=== PATIENT | female | born 1980 | race Caucasian/White ===

== ENCOUNTER 2018-07-26 19:02 | Emergency (ER) | payer OTHER ==
--- NOTE | 2018-07-26 19:08 | PDOC ---
Rapid Medical Evaluation Chief Complaint: Pain Time Seen by Provider: 07/26/18 19:05 Medical Evaluation: 07/26/18 19:06 I have performed a brief in person evaluation of this patient. The patient presents with a CC of: "I feel a lump on the left side of my neck." interpreted by NICHOLAS Larry HPI: Pt is a 37 YO female who states that earlier today she felt a lump/mass on the left side of her neck. PE: Skin: Clear HEENT: No lymphadenopathy. Heart: RRR Lungs: Clear MS: Moves all extremities without difficulty. Pt has pain on the left sternocleidomastoid. Full ROM of neck. Neuro: Appropriate affect Psych: appropriate affect I have ordered: nothing ordered at this time. The patient will proceed to the ED for further evaluation. Discharge Disposition - Diagnosis Musculoskeletal pain - Referrals - Patient Instructions - Post Discharge Activity
[2018-07-26 19:10] VITALS: BP 133/46; PULSE 122; TEMP 99.6; BMI 29.0
--- NOTE | 2018-07-26 20:50 | PDOC ---
History of Present Illness - General Chief Complaint: Pain Stated Complaint: FEVER/PAIN Time Seen by Provider: 07/26/18 19:05 - History of Present Illness Initial Comments: 37-year-old female without comorbidities presents for evaluation of left-sided neck pain times one day without any precipitating traumatic event. 07/26/18 20:45 Past History - Past Medical History Allergies/Adverse Reactions: Allergies Allergy/AdvReac Type Severity Reaction Status Date / Time No Known Allergies Allergy Verified 07/26/18 19:06 Home Medications: Ambulatory Orders Cyclobenzaprine HCl [Flexeril 10 mg] 10 mg PO HS PRN #10 tablet 07/26/18 COPD: No DVT: No Dementia: No - Immunization History Immunization Up to Date: Yes - Suicide/Smoking/Psychosocial Hx Smoking History: Never smoked Hx Alcohol Use: No Drug/Substance Use Hx: No Substance Use Type: None Review of Systems - Review of Systems Musculoskeletal: Yes: Neck Pain All Other Systems: Reviewed and Negative *Physical Exam - Vital Signs Last Vital Signs Temp Pulse Resp BP Pulse Ox 99.6 F 122 H 16 133/46 100 07/26/18 19:06 07/26/18 19:06 07/26/18 19:06 07/26/18 19:06 07/26/18 19:06 - Physical Exam Comments: HEAD: NC/AT EYES: Conjuntiva clear Ears: Canals and TM's normal NOSE: No d/c THROAT: Moist mucous membrances, oral pharanx clear, uvula midline NECK: Supple without adenopathy CARDIAC: S1 S2 LUNGS: CTA Full and Equal breath sounds ABDOMEN: Soft NT ND MS: Full ROM in all joints without edema NEUROLOGIC: No gross sensory or motor deficits, NVID SKIN: Normal color and temperature no lesions or rashes Cervical spine skin color and temperature are normal. Range of motion is full. There is tenderness at the left sternocleidomastoid muscle. With mild palpable spasm. No gross sensorimotor deficits in bilateral upper extremity. She is neurovascularly intact. 07/26/18 20:46 *DC/Admit/Observation/Transfer Diagnosis at time of Disposition: Musculoskeletal pain, Cervical strain - Discharge Dispostion Disposition: HOME Condition at time of disposition: Stable Decision to Admit order: No - Prescriptions Prescriptions: Cyclobenzaprine HCl [Flexeril 10 mg] 10 mg PO HS PRN #10 tablet PRN Reason: Muscle Spasms - Referrals Referrals: Aurelio Barnes MD [Primary Care Provider] - Valente Thacker MD [Staff Physician] - - Patient Instructions Printed Discharge Instructions: DI for Neck Pain Additional Instructions: Return to the emergency room should symptoms worsen or go unresolved. Please follow-up with spine doctor in one to 2 days for further evaluation and treatment options. The muscle relaxer I prescribed he will make you sleepy. One tablet before bedtime. - Post Discharge Activity
== END 2018-07-26 21:00 | disposition home or self-care (01) ==
LOC: JERFT 19:02
DX: M79.1 Myalgia (principal); S16.1XXA Strain of muscle, fascia and tendon at neck level, initial encounter; X58.XXXA Exposure to other specified factors, initial encounter; Y93.89 Activity, other specified; Y92.89 Other specified places as the place of occurrence of the external cause; Y99.8 Other external cause status
CPT/HCPCS: 99281-25

== ENCOUNTER 2018-07-28 20:53 | Observation (INO) | payer OTHER ==
--- NOTE | 2018-07-28 21:09 | PDOC ---
Rapid Medical Evaluation Time Seen by Provider: 07/28/18 21:03 Medical Evaluation: Allergies Allergy/AdvReac Type Severity Reaction Status Date / Time No Known Allergies Allergy Verified 07/26/18 19:06 07/28/18 21:06 I have performed a brief in-person evaluation of this patient. The patient presents with a chief complaint of: return to ed for fever, bodyaches and dizziness. Patient seen Wednesday given cyclobenzaprine. States not feeling better Pertinent physical exam findings are NAD clear lungs bilaterally hr 120 I have ordered the following: ekg, iv site, labs, blood culture, antipyretic The patient will proceed to Ed for further evaluation Discharge Disposition - Referrals Referrals: Aurelio Barnes MD [Primary Care Provider] - - Patient Instructions - Post Discharge Activity
[2018-07-28] MEDS ORDERED: ACETAMINOPHEN 325 MG TABLET (FP) PO ONE (21:10)
[2018-07-28] MEDS ORDERED: SODIUM CHLORIDE 0.9% 500 ML INFUS.BAG IV ONE (21:11)
--- NOTE | 2018-07-28 21:20 | PDOC ---
History of Present Illness - History of Present Illness Initial Comments: 07/28/18 21:20 Ms. Cordero is a 37 yo female w/ no pmh who presents for evaluation of 3 day history of right sided flank pain and fever. Patient was evaluated 2 days ago in this ER; per note she was complaining of neck pain at that time w/ associated TTP. Patient was discharged w/ flexeril. Patient reports fever started after she left ER on Wednesday. Also reports increased Urinary frequency over this time. Patient reports she has taken motrin for fever with some relief from symptoms. LMP started today. The patient denies chest pain, shortness of breath, headache and dizziness. Denies chills, nausea, vomit, diarrhea and constipation. Denies dysuria, urgency and hematuria. <Terrence Jennings - Last Filed: 07/29/18 00:00> <Chetan Diaz - Last Filed: 07/29/18 01:30> - General Chief Complaint: Cold Symptoms Stated Complaint: COLD SYMPTOMS Time Seen by Provider: 07/28/18 21:03 Past History - Past Medical History COPD: No DVT: No Dementia: No - Immunization History Immunization Up to Date: Yes - Suicide/Smoking/Psychosocial Hx Smoking History: Never smoked Have you smoked in the past 12 months: No Information on smoking cessation initiated: No Hx Alcohol Use: No Drug/Substance Use Hx: No Substance Use Type: None <Terrence Jennings - Last Filed: 07/29/18 00:00> <Chetan Diaz - Last Filed: 07/29/18 01:30> - Past Medical History Allergies/Adverse Reactions: Allergies Allergy/AdvReac Type Severity Reaction Status Date / Time No Known Allergies Allergy Verified 07/28/18 21:09 Home Medications: Ambulatory Orders Cyclobenzaprine HCl [Flexeril 10 mg] 10 mg PO HS PRN #10 tablet 07/26/18 Review of Systems - Review of Systems Comments:: 07/28/18 22:15 GENERAL/CONSTITUTIONAL: +Fever as described. No chills. No weakness. HEAD, EYES, EARS, NOSE AND THROAT: No change in vision. No ear pain or discharge. No sore throat. CARDIOVASCULAR: No chest pain or shortness of breath RESPIRATORY: No cough, wheezing, or hemoptysis. GASTROINTESTINAL: +Right flank pain x3 days. No nausea, vomiting, diarrhea or constipation. GENITOURINARY: +Increased urinary frequency over past several days. No dysuria or other change in urination. MUSCULOSKELETAL: No joint or muscle swelling or pain. No neck or back pain. SKIN: No rash NEUROLOGIC: No headache, vertigo, loss of consciousness, or change in strength/ sensation. ENDOCRINE: No increased thirst. No abnormal weight change HEMATOLOGIC/LYMPHATIC: No anemia, easy bleeding, or history of blood clots. ALLERGIC/IMMUNOLOGIC: No hives or skin allergy. <Terrence Jennings - Last Filed: 07/29/18 00:00> *Physical Exam - Vital Signs Last Vital Signs Temp Pulse Resp BP Pulse Ox 102.7 F H 128 H 18 106/73 100 07/28/18 21:05 07/28/18 21:05 07/28/18 21:05 07/28/18 21:05 07/28/18 21:05 - Physical Exam Comments: 07/28/18 22:16 GENERAL: Awake, alert, and fully oriented, in no acute distress HEAD: No signs of trauma, normocephalic, atraumatic EYES: PERRLA, EOMI, sclera anicteric, conjunctiva clear ENT: Auricles normal inspection, hearing grossly normal, nares patent, oropharynx clear without exudates. Moist mucosa NECK: Normal ROM, supple, no lymphadenopathy, JVD, or masses LUNGS: No distress, speaks full sentences, clear to auscultation bilaterally HEART: +Tachycardic rate at presentation. Regular rhythm, normal S1 and S2, no murmurs, rubs or gallops, peripheral pulses normal and equal bilaterally. ABDOMEN: Soft, nontender, normoactive bowel sounds. No guarding, no rebound. No masses EXTREMITIES: Normal inspection, normal range of motion, no edema. No clubbing or cyanosis. NEUROLOGICAL: Cranial nerves II through XII grossly intact. Normal speech, normal gait, no focal sensorimotor deficits SKIN: Warm, Dry, normal turgor, no rashes or lesions noted. <Terrence Jennings - Last Filed: 07/29/18 00:00> - Vital Signs Last Vital Signs Temp Pulse Resp BP Pulse Ox 98.6 F 88 16 115/61 100 07/29/18 00:57 07/29/18 00:57 07/29/18 00:57 07/29/18 00:57 07/29/18 00:57 <EmilyChetan - Last Filed: 07/29/18 01:30> ED Treatment Course - LABORATORY CBC & Chemistry Diagram: 07/28/18 23:00 07/28/18 21:28 <Terrence Jennings - Last Filed: 07/29/18 00:00> - LABORATORY CBC & Chemistry Diagram: 07/28/18 23:00 07/28/18 21:28 - ADDITIONAL ORDERS Additional order review: Laboratory Results 07/29/18 07/28/18 07/28/18 00:10 23:47 22:30 PT with INR INR PTT (Actin FS) VBG pH POC VBG pCO2 POC VBG pO2 Mixed VBG HCO3 Sodium Potassium Chloride Carbon Dioxide Anion Gap BUN Creatinine Creat Clearance w eGFR Random Glucose Lactic Acid Calcium Total Bilirubin AST ALT Alkaline Phosphatase Troponin I Total Protein Albumin TSH Beta HCG, Quant Urine Color Urine Appearance Urine pH Ur Specific [place] Urine Protein Urine Glucose (UA) Urine Ketones Urine Blood Urine Nitrite Urine Bilirubin Urine Urobilinogen Ur Leukocyte Esterase Urine WBC (Auto) Urine RBC (Auto) Ur Epithelial Cells Urine Mucus Urine HCG, Qual Negative Blood Type A POSITIVE A POSITIVE Antibody Screen Negative Crossmatch See Detail 07/28/18 07/28/18 07/28/18 22:30 21:53 21:53 PT with INR INR PTT (Actin FS) VBG pH 7.42 POC VBG pCO2 36.3 L POC VBG pO2 44.1 Mixed VBG HCO3 23.3 Sodium Potassium Chloride Carbon Dioxide Anion Gap BUN Creatinine Creat Clearance w eGFR Random Glucose Lactic Acid 1.5 Calcium Total Bilirubin AST ALT Alkaline Phosphatase Troponin I Total Protein Albumin TSH Beta HCG, Quant Urine Color [place] Urine Appearance Clear Urine pH 7.0 Ur Specific [place] 1.010 Urine Protein Negative Urine Glucose (UA) Negative Urine Ketones Negative Urine Blood 2+ H Urine Nitrite Negative Urine Bilirubin Negative Urine Urobilinogen Negative Ur Leukocyte Esterase Negative Urine WBC (Auto) 6 Urine RBC (Auto) 27 Ur Epithelial Cells Rare Urine Mucus Rare Urine HCG, Qual Blood Type Antibody Screen Crossmatch 07/28/18 07/28/18 07/28/18 21:33 21:28 21:28 PT with INR 13.20 H INR 1.17 H PTT (Actin FS) 26.9 VBG pH POC VBG pCO2 POC VBG pO2 Mixed VBG HCO3 Sodium Potassium Chloride Carbon Dioxide Anion Gap BUN Creatinine Creat Clearance w eGFR Random Glucose Lactic Acid Calcium Total Bilirubin AST ALT Alkaline Phosphatase Troponin I Total Protein Albumin TSH 0.52 Beta HCG, Quant < 1.0 Urine Color Urine Appearance Urine pH Ur Specific [place] Urine Protein Urine Glucose (UA) Urine Ketones Urine Blood Urine Nitrite Urine Bilirubin Urine Urobilinogen Ur Leukocyte Esterase Urine WBC (Auto) Urine RBC (Auto) Ur Epithelial Cells Urine Mucus Urine HCG, Qual Blood Type Antibody Screen Crossmatch 07/28/18 07/28/18 21:28 21:28 PT with INR INR PTT (Actin FS) VBG pH POC VBG pCO2 POC VBG pO2 Mixed VBG HCO3 Sodium 138 Potassium 4.0 Chloride 107 Carbon Dioxide 22 Anion Gap 9 BUN 5 L Creatinine 0.6 Creat Clearance w eGFR > 60 Random Glucose 113 H Lactic Acid Calcium 8.6 Total Bilirubin 0.3 AST 17 ALT 18 Alkaline Phosphatase 80 Troponin I < 0.02 Total Protein 7.0 Albumin 3.4 TSH Beta HCG, Quant Urine Color Urine Appearance Urine pH Ur Specific [place] Urine Protein Urine Glucose (UA) Urine Ketones Urine Blood Urine Nitrite Urine Bilirubin Urine Urobilinogen Ur Leukocyte Esterase Urine WBC (Auto) Urine RBC (Auto) Ur Epithelial Cells Urine Mucus Urine HCG, Qual Blood Type Antibody Screen Crossmatch 07/28/18 07/28/18 23:00 21:33 RBC 5.04 5.06 MCV 51.1 L 50.9 L MCHC 26.4 L 26.3 L RDW 20.5 H 20.9 H MPV 10.1 9.7 Neutrophils % 60.5 64.0 Lymphocytes % 27.3 24.4 Monocytes % 11.2 H 10.3 H Eosinophils % 0.2 0.6 Basophils % 0.8 0.7 - Medications Given in the ED: ED Medications Discontinued Medications Generic Name Dose Route Start Last Admin Trade Name Freq PRN Reason Stop Dose Admin Acetaminophen 975 mg 07/28/18 21:10 07/28/18 22:20 Tylenol - PO 07/28/18 21:11 975 mg ONCE ONE Administration Sodium Chloride 1,000 ml 07/28/18 21:11 07/28/18 22:21 Normal Saline - IV 07/28/18 21:12 1,000 ml ONCE ONE Administration <Chetan Diaz - Last Filed: 07/29/18 01:30> Medical Decision Making - Medical Decision Making 07/28/18 22:20 Ms. Cordero is a 37 yo female w/ pmh as described who presents for fever and R flank pain concerning for pyelo vs. urolithiasis. Patient noted to be tachycardic w/ fever at presentation; sepsis workup started. 07/28/18 22:56 Patient noted to have H/H of 6.8 / 25.7; repeat CBC ordered for confirmation and CT Abd ordered for further evaluation. 07/28/18 23:59 Anemia confirmed w/ repeat CBC. Patient currently pending CT abd/pelvis w/ IV contrast. Type and screen ordered in preparation for possible blood transfusion. Patient signed out to Dr. Diaz for further evaluation. <Terrence Jennings - Last Filed: 07/29/18 00:00> *DC/Admit/Observation/Transfer <Terrence Jennings - Last Filed: 07/29/18 00:00> - Discharge Dispostion Decision to Admit order: Yes <Chetan Diaz - Last Filed: 07/29/18 01:30> Diagnosis at time of Disposition: Right flank pain Anemia Qualifiers: Anemia type: unspecified type Qualified Code(s): D64.9 - Anemia, unspecified - Discharge Dispostion Condition at time of disposition: Stable - Referrals Referrals: Aurelio Barnes MD [Primary Care Provider] - - Patient Instructions - Post Discharge Activity
[2018-07-28 21:51] LABS: BASO % 0.7 % (0-2.0); EOS % 0.6 % (0-4.5); LYMPH % 24.4 % (8-40); MEAN CELL VOLUME 50.9 fl (80-96); MEAN PLT VOLUME 9.7 fl (7.5-11.1); MONO % 10.3 % (3.8-10.2); PLATELET COUNT 74 K/MM3 (134-434); RBC 5.06 M/mm3 (3.60-5.2); RDW 20.9 % (11.6-15.6); WHITE BLOOD COUNT 8.2 K/mm3 (4.0-10.0)
[2018-07-28 22:05] LABS: ALBUMIN 3.4 g/dl (3.4-5.0); ALK PHOS 80 U/L (45-117); ANION GAP 9 MMOL/L (8-16); BILIRUBIN,TOTAL 0.3 mg/dL (0.2-1); BLOOD UREA NITROGEN 5 mg/dL (7-18); CALCIUM 8.6 mg/dL (8.5-10.1); CHLORIDE 107 mmol/L (98-107); CO2 22 mmol/L (21-32); CREATININE 0.6 mg/dL (0.55-1.3); GLUCOSE,RANDOM 113 mg/dL (74-106); SGOT/AST 17 U/L (15-37); SGPT/ALT 18 U/L (13-61); SODIUM 138 mmol/L (136-145)
[2018-07-28 22:06] LABS: VENOUS PC02 36.3 mmHg (38-52); VENOUS PH 7.42 (7.32-7.42); VENOUS PO2 44.1 mmHg (28-48)
[2018-07-28 22:16] LABS: INR 1.17 (0.83-1.09); PROTHROMBIN TIME (PATIENT) 13.2 SEC (9.7-13.0)
[2018-07-28] MEDS ORDERED: ACETAMINOPHEN 325 MG TABLET (FP) ONE (22:17)
[2018-07-28 22:19] LABS: ACTIVATED PTT 26.9 SECONDS (25.2-36.5)
[2018-07-28 22:38] LABS: MCH 13.4 pg (25.7-33.7)
[2018-07-28 22:39] LABS: HEMOGLOBIN 6.8 GM/dL (10.7-15.3)
[2018-07-28 22:40] LABS: HEMATOCRIT 25.7 % (32.4-45.2)
[2018-07-28 22:41] LABS: MCHC 26.3 g/dl (32.0-36.0)
[2018-07-28 22:44] LABS: URINE APPEARANCE CLEAR; URINE BILIRUBIN NEGATIVE (<2.0 mg/dL); URINE COLOR AMBER; URINE GLUCOSE (UA) NEGATIVE (NEGATIVE); URINE KETONE NEGATIVE (NEGATIVE); URINE LEUK ESTERASE NEGATIVE (NEGATIVE); URINE NITRITE NEGATIVE (NEGATIVE); URINE PROTEIN NEGATIVE (NEGATIVE); URINE UROBILINOGEN NEGATIVE mg/dL (0.2-1.0)
[2018-07-28 22:49] LABS: EPI CELLS RARE /HPF (FEW); URINE MUCUS RARE
[2018-07-28 23:06] LABS: WHITE BLOOD COUNT 9.8 K/mm3 (4.0-10.0)
--- NOTE | 2018-07-28 23:15 | PDOC ---
Attending Attestation - HPI HPI: 07/28/18 23:41 The patient is a 37 year old female with no past medical history who presents to the emergency department for evaluation of a 4 day history of constant, worsening right flank pain. Patient endorses subjective fever and urinary frequency. She reports taking motrin with minimal relief. The patient was seen in the emergency department 2 days ago for neck pain, was discharged with flexeril. Denies chills, nausea, vomiting ,chest pain, shortness of breath, and dysuria. - Physicial Exam PE: Vitals: Triage Vital signs reviewed General Appearance: no acute distress, well nourished well developed, Head: Atraumatic, normocephalic Neck: Supple Chest Wall: Nontender Cardiac: Regular rate and rhythm, no murmurs, no rubs, no gallops, Lungs: Clear to auscultation bilateral, good air movement bilaterally, Abdomen: Soft, nondistended, nontender to palpation Back: (+)Low back, flank discomfort on right. Extremities: Full range of motion to all extremities, no cyanosis, clubbing, or edema Skin: Warm and dry, no rashes or lesions, no petechiae Psych: normal mood, normal affect - Medical Decision Making The patient is a 37 year old female with no past medical history who presents to the emergency department for evaluation of a 4 day history of constant, worsening right flank pain. Plan: CT scan of abdomen Chest X-ray ECG Labs Oxygen <Elsie España - Last Filed: 07/28/18 23:41> - Resident Resident Name: Chrissie Pedraza - ED Attending Attestation I have performed the following: I have examined & evaluated the patient, The case was reviewed & discussed with the resident, I agree w/resident's findings & plan, Exceptions are as noted - Medical Decision Making Fever chills tachycardia no white count on laboratory analysis. CAT scan with evidence of possible passed stone Urinalysis with evidence of infection Ceftriaxone given vital signs have normalized after IV fluids and Tylenol Most likely this represents a transient UTI in the context of a passed stone at this time no evidence of infected stone based on CT findings however will admit patient to the hospital with urology consult <George Pineda - Last Filed: 07/31/18 02:27> Attestations - Attestations Documentation prepared by Elsie España, acting as diploma medical assistant for George Pineda MD. <Elsie España - Last Filed: 07/28/18 23:41>
[2018-07-28 23:29] LABS: BASO % 0.8 % (0-2.0); EOS % 0.2 % (0-4.5); LYMPH % 27.3 % (8-40); MCHC 26.4 g/dl (32.0-36.0); MEAN CELL VOLUME 51.1 fl (80-96); MEAN PLT VOLUME 10.1 fl (7.5-11.1); MONO % 11.2 % (3.8-10.2); NEUT % 60.5 % (42.8-82.8); PLATELET COUNT 76 K/MM3 (134-434); RBC 5.04 M/mm3 (3.60-5.2); RDW 20.5 % (11.6-15.6)
[2018-07-28 23:32] LABS: MCH 13.5 pg (25.7-33.7)
[2018-07-28 23:33] LABS: HEMOGLOBIN 6.8 GM/dL (10.7-15.3)
[2018-07-28 23:34] LABS: ADD RBC MORPHOLOGY YES; HEMATOCRIT 25.8 % (32.4-45.2)
[2018-07-29] MEDS ORDERED: CEFTRIAXONE 1 GM in DEXTROSE 5%-WATER - 100 ML IVPB ONE (01:02)
[2018-07-29] MEDS ORDERED: CEFTRIAXONE 1 GM/50 ML BAG ONE (01:44)
--- NOTE | 2018-07-29 02:47 | PDOC ---
*Physical Exam - Vital Signs Last Vital Signs Temp Pulse Resp BP Pulse Ox 98.6 F 88 16 115/61 100 07/29/18 00:57 07/29/18 00:57 07/29/18 00:57 07/29/18 00:57 07/29/18 00:57 - Physical Exam Comments: 07/29/18 06:38 General Appearance: Nourished. No Apparent Distress HEENT: No Pharyngeal Erythema, Tonsillar Exudate, Tonsillar Erythema Neck: No Cervical Lymphadenopathy Respiratory/Chest: Lungs Clear, Normal Breath Sounds. No Crackles, Rales, Rhonchi, Wheezing Cardiovascular: Regular Rhythm, Regular Rate. No Murmur, Gallops, Rubs Gastrointestinal/Abdominal: Normal Bowel Sounds, Soft. No Guarding, Rebound, Tenderness Musculoskeletal: No CVA Tenderness Extremity: Normal Capillary Refill Integumentary: Normal Color, Dry, Warm Neurologic: Fully Oriented, Alert, Normal Mood/Affect, Normal Response, ED Treatment Course - LABORATORY CBC & Chemistry Diagram: 07/28/18 23:00 07/28/18 21:28 - ADDITIONAL ORDERS Additional order review: Laboratory Results 07/29/18 07/28/18 07/28/18 00:10 23:47 22:30 PT with INR INR PTT (Actin FS) VBG pH POC VBG pCO2 POC VBG pO2 Mixed VBG HCO3 Sodium Potassium Chloride Carbon Dioxide Anion Gap BUN Creatinine Creat Clearance w eGFR Random Glucose Lactic Acid Calcium Total Bilirubin AST ALT Alkaline Phosphatase Troponin I Total Protein Albumin TSH Beta HCG, Quant Urine Color Urine Appearance Urine pH Ur Specific [place] Urine Protein Urine Glucose (UA) Urine Ketones Urine Blood Urine Nitrite Urine Bilirubin Urine Urobilinogen Ur Leukocyte Esterase Urine WBC (Auto) Urine RBC (Auto) Ur Epithelial Cells Urine Mucus Urine HCG, Qual Negative Blood Type A POSITIVE A POSITIVE Antibody Screen Negative Crossmatch See Detail 07/28/18 07/28/18 07/28/18 22:30 21:53 21:53 PT with INR INR PTT (Actin FS) VBG pH 7.42 POC VBG pCO2 36.3 L POC VBG pO2 44.1 Mixed VBG HCO3 23.3 Sodium Potassium Chloride Carbon Dioxide Anion Gap BUN Creatinine Creat Clearance w eGFR Random Glucose Lactic Acid 1.5 Calcium Total Bilirubin AST ALT Alkaline Phosphatase Troponin I Total Protein Albumin TSH Beta HCG, Quant Urine Color [place] Urine Appearance Clear Urine pH 7.0 Ur Specific [place] 1.010 Urine Protein Negative Urine Glucose (UA) Negative Urine Ketones Negative Urine Blood 2+ H Urine Nitrite Negative Urine Bilirubin Negative Urine Urobilinogen Negative Ur Leukocyte Esterase Negative Urine WBC (Auto) 6 Urine RBC (Auto) 27 Ur Epithelial Cells Rare Urine Mucus Rare Urine HCG, Qual Blood Type Antibody Screen Crossmatch 07/28/18 07/28/18 07/28/18 21:33 21:28 21:28 PT with INR 13.20 H INR 1.17 H PTT (Actin FS) 26.9 VBG pH POC VBG pCO2 POC VBG pO2 Mixed VBG HCO3 Sodium Potassium Chloride Carbon Dioxide Anion Gap BUN Creatinine Creat Clearance w eGFR Random Glucose Lactic Acid Calcium Total Bilirubin AST ALT Alkaline Phosphatase Troponin I Total Protein Albumin TSH 0.52 Beta HCG, Quant < 1.0 Urine Color Urine Appearance Urine pH Ur Specific [place] Urine Protein Urine Glucose (UA) Urine Ketones Urine Blood Urine Nitrite Urine Bilirubin Urine Urobilinogen Ur Leukocyte Esterase Urine WBC (Auto) Urine RBC (Auto) Ur Epithelial Cells Urine Mucus Urine HCG, Qual Blood Type Antibody Screen Crossmatch 07/28/18 07/28/18 21:28 21:28 PT with INR INR PTT (Actin FS) VBG pH POC VBG pCO2 POC VBG pO2 Mixed VBG HCO3 Sodium 138 Potassium 4.0 Chloride 107 Carbon Dioxide 22 Anion Gap 9 BUN 5 L Creatinine 0.6 Creat Clearance w eGFR > 60 Random Glucose 113 H Lactic Acid Calcium 8.6 Total Bilirubin 0.3 AST 17 ALT 18 Alkaline Phosphatase 80 Troponin I < 0.02 Total Protein 7.0 Albumin 3.4 TSH Beta HCG, Quant Urine Color Urine Appearance Urine pH Ur Specific [place] Urine Protein Urine Glucose (UA) Urine Ketones Urine Blood Urine Nitrite Urine Bilirubin Urine Urobilinogen Ur Leukocyte Esterase Urine WBC (Auto) Urine RBC (Auto) Ur Epithelial Cells Urine Mucus Urine HCG, Qual Blood Type Antibody Screen Crossmatch 07/28/18 07/28/18 23:00 21:33 RBC 5.04 5.06 MCV 51.1 L 50.9 L MCHC 26.4 L 26.3 L RDW 20.5 H 20.9 H MPV 10.1 9.7 Neutrophils % 60.5 64.0 Lymphocytes % 27.3 24.4 Monocytes % 11.2 H 10.3 H Eosinophils % 0.2 0.6 Basophils % 0.8 0.7 - Medications Given in the ED: ED Medications Discontinued Medications Generic Name Dose Route Start Last Admin Trade Name Zhanna PRN Reason Stop Dose Admin Acetaminophen 975 mg 07/28/18 21:10 07/28/18 22:20 Tylenol - PO 07/28/18 21:11 975 mg ONCE ONE Administration Ceftriaxone Sodium 1 gm/ 100 mls @ 200 mls/hr 07/29/18 01:02 07/29/18 01:47 Dextrose IVPB 07/29/18 01:31 200 mls/hr ONCE ONE Administration Protocol Sodium Chloride 1,000 ml 07/28/18 21:11 07/28/18 22:21 Normal Saline - IV 07/28/18 21:12 1,000 ml ONCE ONE Administration Progress Note - Progress Note Progress Note: The patient is a 37 year old female who presented for evaluation of flank pain. Patient was febrile on presentation and noted to be anemic to 6.8. Patient is pending CT scan and admission. Medical Decision Making - Medical Decision Making 07/29/18 06:39 CT scan demonstrates hydronephrosis without any notable kidney stones as preliminarily read by our tile professional radiologist. We will treat the patient with ceftriaxone and 1 PRBC. We discussed the case with the admitting team who accepted the patient for admission. *DC/Admit/Observation/Transfer Diagnosis at time of Disposition: Right flank pain Anemia Qualifiers: Anemia type: unspecified type Qualified Code(s): D64.9 - Anemia, unspecified - Discharge Dispostion Condition at time of disposition: Stable - Referrals - Patient Instructions - Post Discharge Activity
--- NOTE | 2018-07-29 03:08 | HP ---
CHIEF COMPLAINT: Right Flank Pain, Fever, Fatigue PCP: Dr. Aurelio Barnes HISTORY OF PRESENT ILLNESS: This is a 37 y/o young woman with a PMHx of Anemia 2 yrs ago (no blood transfusion, no iron meds). Who presents to the ED with right flank pain, fever , and fatigue x several days. Patient reports being seen at [facility] 2 days ago for neck/back pain discharged with muscle relaxant. She reports that she felt worse. Patient reports having subjective fevers, not taking her temperature but feeling hot. 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 Patient reports having heavy vaginal bleeding during her menstrual cycle. Patient denies chills, cough. SOB, BOWLES, CP, N/V/D, constipation, dysuria. LMP- currently Patient denies recent sick contacts or travel. 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 Family History: Allergies No Known Allergies Allergy (Verified 07/28/18 21:09) HOME MEDICATIONS: Home Medications Medication Instructions Recorded Cyclobenzaprine HCl [Flexeril 10 10 mg PO HS PRN #10 tablet 07/26/18 mg] REVIEW OF SYSTEMS CONSTITUTIONAL: fever, malaise Absent: chills, diaphoresis, generalized weakness, loss of appetite, weight change HEENT: Absent: rhinorrhea, nasal congestion, throat pain, throat swelling, difficulty swallowing, mouth swelling, ear pain, eye pain, visual changes CARDIOVASCULAR: Absent: chest pain, syncope, palpitations, irregular heart rate, lightheadedness , peripheral edema RESPIRATORY: Absent: cough, shortness of breath, dyspnea with exertion, orthopnea, wheezing, stridor, hemoptysis GASTROINTESTINAL: Absent: abdominal pain, abdominal distension, nausea, vomiting, diarrhea, constipation, melena, hematochezia GENITOURINARY: flank pain Absent: dysuria, frequency, urgency, hesitancy, hematuria, genital pain MUSCULOSKELETAL: back pain, neck pain Absent: myalgia, arthralgia, joint swelling SKIN: Absent: rash, itching, pallor HEMATOLOGIC/IMMUNOLOGIC: Absent: easy bleeding, easy bruising, lymphadenopathy, frequent infections ENDOCRINE: Absent: unexplained weight gain, unexplained weight loss, heat intolerance, cold intolerance NEUROLOGIC: Absent: headache, focal weakness or paresthesias, dizziness, unsteady gait, seizure, mental status changes, bladder or bowel incontinence PSYCHIATRIC: Absent: anxiety, depression, suicidal or homicidal ideation, hallucinations. PHYSICAL EXAMINATION Vital Signs - 24 hr 07/28/18 07/29/18 21:05 00:57 Temperature 102.7 F H 98.6 F Pulse Rate 128 H Pulse Rate [ 88 Apical] Respiratory 18 16 Rate Blood Pressure 106/73 Blood Pressure 115/61 [Left Arm] O2 Sat by Pulse 100 100 Oximetry (%) GENERAL: Awake, alert, and fully oriented, in no acute distress. HEAD: Normal with no signs of trauma. EYES: Pupils equal, round and reactive to light, extraocular movements intact, sclera anicteric, conjunctiva clear, pale. No lid lag. EARS, NOSE, THROAT: Ears normal, nares patent, oropharynx clear without exudates. Moist mucous membranes. NECK: Normal range of motion, supple without lymphadenopathy, JVD, or masses. LUNGS: Breath sounds equal, clear to auscultation bilaterally. No wheezes, and no crackles. No accessory muscle use. HEART: Regular rate and rhythm, normal S1 and S2 without murmur, rub or gallop. ABDOMEN: Soft, nontender, not distended, normoactive bowel sounds, no guarding, no rebound, no masses. No hepatomegaly or splenomegaly. MUSCULOSKELETAL: Normal range of motion at all joints. No bony deformities or tenderness. No CVA tenderness. UPPER EXTREMITIES: 2+ pulses, warm, well-perfused. No cyanosis. No clubbing. No peripheral edema. LOWER EXTREMITIES: 2+ pulses, warm, well-perfused. No calf tenderness. No peripheral edema. NEUROLOGICAL: Cranial nerves II-XII intact. Normal speech. Gait not observed. PSYCHIATRIC: Cooperative. Good eye contact. Appropriate mood and affect. SKIN: Warm, dry, normal turgor, no rashes or lesions noted, normal capillary refill. Laboratory Results - last 24 hr 07/28/18 07/28/18 07/28/18 21:28 21:28 21:28 WBC RBC Hgb Hct MCV MCH MCHC RDW Plt Count MPV Absolute Neuts (auto) Neutrophils % Lymphocytes % Monocytes % Eosinophils % Basophils % Nucleated RBC % PT with INR INR PTT (Actin FS) VBG pH POC VBG pCO2 POC VBG pO2 Mixed VBG HCO3 Sodium 138 Potassium 4.0 Chloride 107 Carbon Dioxide 22 Anion Gap 9 BUN 5 L Creatinine 0.6 Creat Clearance w eGFR > 60 Random Glucose 113 H Lactic Acid Calcium 8.6 Total Bilirubin 0.3 AST 17 ALT 18 Alkaline Phosphatase 80 Troponin I < 0.02 Total Protein 7.0 Albumin 3.4 TSH 0.52 Beta HCG, Quant Urine Color Urine Appearance Urine pH Ur Specific [place] Urine Protein Urine Glucose (UA) Urine Ketones Urine Blood Urine Nitrite Urine Bilirubin Urine Urobilinogen Ur Leukocyte Esterase Urine WBC (Auto) Urine RBC (Auto) Ur Epithelial Cells Urine Mucus Urine HCG, Qual Blood Type Antibody Screen Crossmatch 07/28/18 07/28/18 07/28/18 21:28 21:33 21:33 WBC 8.2 RBC 5.06 Hgb 6.8 L* Hct 25.7 L MCV 50.9 L MCH 13.4 L MCHC 26.3 L RDW 20.9 H Plt Count 74 L MPV 9.7 Absolute Neuts (auto) 5.2 Neutrophils % 64.0 Lymphocytes % 24.4 Monocytes % 10.3 H Eosinophils % 0.6 Basophils % 0.7 Nucleated RBC % 0 PT with INR 13.20 H INR 1.17 H PTT (Actin FS) 26.9 VBG pH POC VBG pCO2 POC VBG pO2 Mixed VBG HCO3 Sodium Potassium Chloride Carbon Dioxide Anion Gap BUN Creatinine Creat Clearance w eGFR Random Glucose Lactic Acid Calcium Total Bilirubin AST ALT Alkaline Phosphatase Troponin I Total Protein Albumin TSH Beta HCG, Quant < 1.0 Urine Color Urine Appearance Urine pH Ur Specific [place] Urine Protein Urine Glucose (UA) Urine Ketones Urine Blood Urine Nitrite Urine Bilirubin Urine Urobilinogen Ur Leukocyte Esterase Urine WBC (Auto) Urine RBC (Auto) Ur Epithelial Cells Urine Mucus Urine HCG, Qual Blood Type Antibody Screen Crossmatch 07/28/18 07/28/18 07/28/18 21:53 21:53 22:30 WBC RBC Hgb Hct MCV MCH MCHC RDW Plt Count MPV Absolute Neuts (auto) Neutrophils % Lymphocytes % Monocytes % Eosinophils % Basophils % Nucleated RBC % PT with INR INR PTT (Actin FS) VBG pH 7.42 POC VBG pCO2 36.3 L POC VBG pO2 44.1 Mixed VBG HCO3 23.3 Sodium Potassium Chloride Carbon Dioxide Anion Gap BUN Creatinine Creat Clearance w eGFR Random Glucose Lactic Acid 1.5 Calcium Total Bilirubin AST ALT Alkaline Phosphatase Troponin I Total Protein Albumin TSH Beta HCG, Quant Urine Color [place] Urine Appearance Clear Urine pH 7.0 Ur Specific [place] 1.010 Urine Protein Negative Urine Glucose (UA) Negative Urine Ketones Negative Urine Blood 2+ H Urine Nitrite Negative Urine Bilirubin Negative Urine Urobilinogen Negative Ur Leukocyte Esterase Negative Urine WBC (Auto) 6 Urine RBC (Auto) 27 Ur Epithelial Cells Rare Urine Mucus Rare Urine HCG, Qual Blood Type Antibody Screen Crossmatch 07/28/18 07/28/18 07/28/18 22:30 23:00 23:47 WBC 9.8 RBC 5.04 Hgb 6.8 L* Hct 25.8 L MCV 51.1 L MCH 13.5 L MCHC 26.4 L RDW 20.5 H Plt Count 76 L MPV 10.1 Absolute Neuts (auto) 5.9 Neutrophils % 60.5 Lymphocytes % 27.3 Monocytes % 11.2 H Eosinophils % 0.2 Basophils % 0.8 Nucleated RBC % 0 PT with INR INR PTT (Actin FS) VBG pH POC VBG pCO2 POC VBG pO2 Mixed VBG HCO3 Sodium Potassium Chloride Carbon Dioxide Anion Gap BUN Creatinine Creat Clearance w eGFR Random Glucose Lactic Acid Calcium Total Bilirubin AST ALT Alkaline Phosphatase Troponin I Total Protein Albumin TSH Beta HCG, Quant Urine Color Urine Appearance Urine pH Ur Specific [place] Urine Protein Urine Glucose (UA) Urine Ketones Urine Blood Urine Nitrite Urine Bilirubin Urine Urobilinogen Ur Leukocyte Esterase Urine WBC (Auto) Urine RBC (Auto) Ur Epithelial Cells Urine Mucus Urine HCG, Qual Negative Blood Type A POSITIVE Antibody Screen Negative Crossmatch 07/29/18 00:10 WBC RBC Hgb Hct MCV MCH MCHC RDW Plt Count MPV Absolute Neuts (auto) Neutrophils % Lymphocytes % Monocytes % Eosinophils % Basophils % Nucleated RBC % PT with INR INR PTT (Actin FS) VBG pH POC VBG pCO2 POC VBG pO2 Mixed VBG HCO3 Sodium Potassium Chloride Carbon Dioxide Anion Gap BUN Creatinine Creat Clearance w eGFR Random Glucose Lactic Acid Calcium Total Bilirubin AST ALT Alkaline Phosphatase Troponin I Total Protein Albumin TSH Beta HCG, Quant Urine Color Urine Appearance Urine pH Ur Specific [place] Urine Protein Urine Glucose (UA) Urine Ketones Urine Blood Urine Nitrite Urine Bilirubin Urine Urobilinogen Ur Leukocyte Esterase Urine WBC (Auto) Urine RBC (Auto) Ur Epithelial Cells Urine Mucus Urine HCG, Qual Blood Type A POSITIVE Antibody Screen Crossmatch See Detail ASSESSMENT/PLAN: This is a 37 y/o young woman with a PMHx of Anemia (no blood transfusion, no iron meds). Placed in Observation for Symptomatic Anemia, R- Flank Pain r/o Pyelonephritis for further evaluation of their emergent condition. FEN: - PO fluids as tolerated - replete lytes prn - Regular Diet DVT ppx -OOB -SCDs -No AC secondary to Anemia Code Status: Full Code Dispo: Observation Problem List - Problem (1) Anemia Assessment/Plan: - Likely secondary to FREDIS vs Menorrhagia - Hgb 6.8 - PRBC x1 pending - Repeat CBC in am - f/u with Hematology and TRUCK JUMPER in outpatient upon d/c - Ferrous Sulfate - Monitor vitals Code(s): D64.9 - ANEMIA, UNSPECIFIED Qualifiers: Anemia type: unspecified type Qualified Code(s): D64.9 - Anemia, unspecified (2) Right flank pain Assessment/Plan: - r/o Renal Calculi vs Pyelonephritis - T max 102.6 - UA- +2 blood possible 2/2 menses - Urine culture-pending - No leukocytosis, no neutrophilia - Blood cultures-pending - Appreciate Urology consult - Given Ceftriaxone in ED, will continue - Strain all urine - Monitor CBC, BMP - Monitor vitals - Tylenol prn Code(s): R10.9 - UNSPECIFIED ABDOMINAL PAIN Visit type - Emergency Visit Emergency Visit: Yes ED Registration Date: 07/28/18 Care time: The patient presented to the Emergency Department on the above date and was hospitalized for further evaluation of their emergent condition. - New Patient This patient is new to me today: Yes Date on this admission: 07/29/18 - Critical Care Critical Care patient: No Hospitalist Screening - Colonoscopy Questionnaire Colonoscopy Questionnaire: Colonoscopy Questionnaire - Patient: 50 - 75 years old and never had a screening colonoscopy: No History of colon or rectal polyps, or CA: No History of IBD, Crohn's disease or UC: No History of abdominal radiation therapy as a child: No - Relative: 1 with colon or rectal CA, or polyps at age 60 or younger: No Colon or rectal CA diagnosed at age 45 or younger: No Multiple relatives with colon or rectal CA: No - Outcome: Screening Result: Negative Screen
[2018-07-29 07:22] LABS: ANISOCYTOSIS 2+; MACROCYTOSIS 2+; OVALOCYTE 2+; TEAR DROP CELLS FEW
[2018-07-29 07:23] LABS: PLATELET ESTIMATE DECREASED
[2018-07-29] MEDS ORDERED: ACETAMINOPHEN 325 MG TABLET (FP) PO ONE (10:09)
[2018-07-29] MEDS ORDERED: ACETAMINOPHEN 325 MG TABLET (FP) ONE (10:10)
[2018-07-29] MEDS: FERROUS SO4 325 MG TABLET (FP) PO SCH (10:11)
[2018-07-29 11:00] LABS: HEMATOCRIT 26.4 % (32.4-45.2); HEMOGLOBIN 7.3 GM/dL (10.7-15.3); MCHC 27.8 g/dl (32.0-36.0); MEAN CELL VOLUME 54.9 fl (80-96); MEAN PLT VOLUME 11.1 fl (7.5-11.1); PLATELET COUNT 77 K/MM3 (134-434); RBC 4.81 M/mm3 (3.60-5.2); RDW 21.3 % (11.6-15.6); WHITE BLOOD COUNT 9.8 K/mm3 (4.0-10.0)
[2018-07-29 11:04] LABS: MCH 15.2 pg (25.7-33.7)
[2018-07-29 11:08] LABS: ANION GAP 9 MMOL/L (8-16); BLOOD UREA NITROGEN 3 mg/dL (7-18); CALCIUM 8.2 mg/dL (8.5-10.1); CHLORIDE 108 mmol/L (98-107); CO2 23 mmol/L (21-32); CREATININE 0.4 mg/dL (0.55-1.3); GLUCOSE,RANDOM 98 mg/dL (74-106); MAGNESIUM 2.1 mg/dL (1.8-2.4); POTASSIUM 3.6 mmol/L (3.5-5.1); SODIUM 140 mmol/L (136-145)
[2018-07-29 13:51] LABS: ANISOCYTOSIS 1+
[2018-07-29 13:52] LABS: TEAR DROP CELLS 1+
--- NOTE | 2018-07-29 15:30 | PN ---
Progress Note, Physician Chief Complaint: patient complaining of right side flank pain had temp 102 last night got iv rocephin - Current Medication List Current Medications: Active Medications Ferrous Sulfate (Feosol -) 325 mg PO DAILY LUISANA Last Admin: 07/29/18 10:11 Dose: 325 mg - Objective Vital Signs: Vital Signs Temperature 98.8 F 07/29/18 08:01 Pulse Rate 16 L 07/29/18 08:01 Respiratory Rate 16 07/29/18 08:01 Blood Pressure 108/54 07/29/18 08:01 O2 Sat by Pulse Oximetry (%) 100 07/29/18 08:01 Constitutional: Yes: Calm Cardiovascular: Yes: Regular Rate and Rhythm, S1, S2 Respiratory: Yes: CTA Bilaterally Gastrointestinal: Yes: Normal Bowel Sounds, Soft Edema: No Neurological: Yes: Alert, Oriented Labs: CBC, BMP 07/29/18 09:53 07/29/18 09:53 INR, PTT INR 1.17 (0.83-1.09) H 07/28/18 21:33 Problem List - Problems (1) Anemia Assessment/Plan: iron panel pending prbc Code(s): D64.9 - ANEMIA, UNSPECIFIED Qualifiers: Anemia type: unspecified type Qualified Code(s): D64.9 - Anemia, unspecified (2) Right flank pain Assessment/Plan: ct scan noted- hydronephrosis with hydroureter urology eval iv abx Code(s): R10.9 - UNSPECIFIED ABDOMINAL PAIN
--- NOTE | 2018-07-29 18:44 | CON.ID ---
Consult Consult Specialty:: infectious disease Referred by:: irwin Reason for Consultation:: fever - History of Present Illness Chief Complaint: fever right sided flank pain History of Present Illness: seen in ED on 07/26 for neck pain, discharged on flexeril, reports to me anterior neck pain, no sore throat that has resolved developed fever and right flank pain after discharge admitted yesterday with anemia, fever, thrombocytopenia and right hydronephrosis on ct scan ?passed stone denies travel no history of utis, took motrin at home no antiibotics no mosquito or tick bites no one sick at home knows she is anemic- does not take po iron it makes her sick from - has not returned there for 2 years - History Source History Provided By: Patient, Family Member Limitations to Obtaining History: Language Barrier - Past Medical History Heme/Onc: Yes: Anemia - Alcohol/Substance Use Hx Alcohol Use: No - Smoking History Smoking history: Never smoked Have you smoked in the past 12 months: No - Social History Usual Living Arrangement: With Spouse ADL: Independent 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 Place of : Other ([facility]) History of Recent Travel: No Home Medications - Allergies Allergies/Adverse Reactions: Allergies Allergy/AdvReac Type Severity Reaction Status Date / Time No Known Allergies Allergy Verified 07/28/18 21:09 - Home Medications Home Medications: Ambulatory Orders Cyclobenzaprine HCl [Flexeril 10 mg] 10 mg PO HS PRN #10 tablet 07/26/18 Family Disease History - Family Disease History Family History: Denies Review of Systems - Review of Systems Constitutional: reports: Fever Eyes: reports: No Symptoms HENT: reports: No Symptoms Neck: reports: No Symptoms Cardiovascular: reports: No Symptoms. denies: Chest Pain Respiratory: reports: No Symptoms. denies: Cough Gastrointestinal: reports: No Symptoms. denies: Abdominal Pain, Nausea, Vomiting Genitourinary: reports: Flank Pain. denies: Discharge, Dysuria Breasts: reports: No Symptoms Reported Musculoskeletal: reports: No Symptoms Physical Exam Vital Signs: Vital Signs Temperature 99.8 F H 07/29/18 16:57 Pulse Rate 81 07/29/18 16:57 Respiratory Rate 15 07/29/18 16:57 Blood Pressure 119/59 L 07/29/18 16:57 O2 Sat by Pulse Oximetry (%) 100 07/29/18 16:57 Constitutional: Yes: Well Nourished, No Distress, Calm Eyes: Yes: Conjunctiva Clear HENT: Yes: Atraumatic, Normocephalic. No: Pharyngeal Erythema, Thrush Neck: Yes: Supple, Trachea Midline Cardiovascular: Yes: Regular Rate and Rhythm Respiratory: Yes: Regular, CTA Bilaterally Gastrointestinal: Yes: Normal Bowel Sounds, Soft Renal/: Yes: CVA Tenderness - Right. No: Bladder Distention Musculoskeletal: Yes: WNL Extremities: Yes: WNL Edema: No Integumentary: Yes: WNL. No: Rash Neurological: Yes: WNL, Alert, Oriented Labs: CBC, BMP 07/29/18 09:53 07/29/18 09:53 Imaging - Results Chest X-ray: Report Reviewed Cat Scan: Report Reviewed (mild right hydronephrosis, ?passed stone) Problem List - Problems (1) Fever Code(s): R50.9 - FEVER, UNSPECIFIED (2) Right flank pain Code(s): R10.9 - UNSPECIFIED ABDOMINAL PAIN (3) Anemia Code(s): D64.9 - ANEMIA, UNSPECIFIED Qualifiers: Anemia type: unspecified type Qualified Code(s): D64.9 - Anemia, unspecified (4) Thrombocytopenia Code(s): D69.6 - THROMBOCYTOPENIA, UNSPECIFIED (5) Hydronephrosis of right kidney Code(s): N13.30 - UNSPECIFIED HYDRONEPHROSIS Assessment/Plan cultures pending continue ceftriaxone for possible pyelonephritis ?passed stone fever/thromobcytopenia ?uti ?tick illness-unlikely , normal lfts, no signs hemolysis no mental status changes denies tick exposure consider hematology evaluation if persists anemia- by history, microcytic
[2018-07-29] MEDS: ACETAMINOPHEN 325 MG TABLET (FP) PO PRN (18:45)
[2018-07-29 19:03] VITALS: BMI 29.0
[2018-07-30] MEDS: ACETAMINOPHEN 325 MG TABLET (FP) PO PRN (00:15)
[2018-07-30 06:06] LABS: SERUM IRON SATURATION 3 % (15-55); TOTAL IRON BINDING CAPACITY 391 ug/dL (250-450); UIBC 378 ug/dL (131-425)
[2018-07-30 07:57] LABS: BASO % 0.8 % (0-2.0); EOS % 2.9 % (0-4.5); HEMATOCRIT 28.5 % (32.4-45.2); HEMOGLOBIN 8.1 GM/dL (10.7-15.3); LYMPH % 32.3 % (8-40); MCHC 28.3 g/dl (32.0-36.0); MEAN CELL VOLUME 56.7 fl (80-96); MEAN PLT VOLUME 10.4 fl (7.5-11.1); MONO % 10.3 % (3.8-10.2); NEUT % 53.7 % (42.8-82.8); PLATELET COUNT 78 K/MM3 (134-434); RBC 5.03 M/mm3 (3.60-5.2); RDW 30.8 % (11.6-15.6); WHITE BLOOD COUNT 9.2 K/mm3 (4.0-10.0)
[2018-07-30 08:38] LABS: MCH 16.1 pg (25.7-33.7)
[2018-07-30] MEDS ORDERED: cefTRIAXone SODIUM 1 GM VIAL ONE (08:57)
[2018-07-30] MEDS ORDERED: DEXTROSE 5%-WATER - 50 ML IVPB ONE (08:58)
[2018-07-30] MEDS: CEFTRIAXONE 1 GM in DEXTROSE 5%-WATER - 50 ML IVPB SCH (09:19)
[2018-07-30] MEDS: FERROUS SO4 325 MG TABLET (FP) PO SCH (09:20)
[2018-07-30 11:30] LABS: ANISOCYTOSIS 2+; PLATELET ESTIMATE DECREASED; TEAR DROP CELLS 1+
[2018-07-30] MEDS ORDERED: IRON SUCROSE INJECTION 300 MG in SODIUM CHLORIDE 235 ML IVPB ONE (13:00)
--- NOTE | 2018-07-30 13:06 | PN ---
Progress Note, Physician Chief Complaint: Anemia Thrombocytopenia Right hydronephrosis History of Present Illness: NAD walking in the hallway wants to go home UC pending CT abd/pel reviewed Does not see any formal wear rental clerk CT showed fibroids- last saw DIRECTOR OF ASSESSING in 2 years ago- didn't know she has fibroids has hx of menorrhagia - Current Medication List Current Medications: Active Medications Acetaminophen (Tylenol -) 650 mg PO Q4H PRN PRN Reason: PAIN Last Admin: 07/30/18 00:15 Dose: 650 mg Ferrous Sulfate (Feosol -) 325 mg PO DAILY LUISANA Last Admin: 07/30/18 09:20 Dose: 325 mg Ceftriaxone Sodium 1 gm/ (Dextrose) 50 mls @ 100 mls/hr IVPB DAILY LUISANA; Protocol Last Admin: 07/30/18 09:19 Dose: 100 mls/hr Iron Sucrose 300 mg/ Sodium (Chloride) 250 mls @ 250 mls/hr IVPB DAILY ONE Stop: 07/30/18 13:59 - Objective Vital Signs: Vital Signs Temperature 98.4 F 07/30/18 10:00 Pulse Rate 93 H 07/30/18 10:00 Respiratory Rate 18 07/30/18 10:00 Blood Pressure 99/50 L 07/30/18 10:00 O2 Sat by Pulse Oximetry (%) 100 07/30/18 03:00 Constitutional: Yes: Well Nourished, No Distress, Calm Cardiovascular: Yes: Regular Rate and Rhythm Respiratory: Yes: Regular Gastrointestinal: Yes: Normal Bowel Sounds, Soft Musculoskeletal: Yes: WNL Extremities: Yes: WNL Edema: No Peripheral Pulses WNL: Yes Neurological: Yes: Alert, Oriented Psychiatric: Yes: Alert, Oriented Labs: CBC, BMP 07/30/18 07:15 07/29/18 09:53 INR, PTT INR 1.17 (0.83-1.09) H 07/28/18 21:33 Problem List - Problems (1) Anemia Assessment/Plan: -FREDIS -Avoids taking oral iron, causes constipation -Instructed to see hematology outpatient -Venofer 300 mg x 2 days -Monitor H/H Code(s): D64.9 - ANEMIA, UNSPECIFIED Qualifiers: Anemia type: unspecified type Qualified Code(s): D64.9 - Anemia, unspecified (2) Hydronephrosis of right kidney Assessment/Plan: -mild right hydronephrosis without obstruction Code(s): N13.30 - UNSPECIFIED HYDRONEPHROSIS (3) Right flank pain Assessment/Plan: -pain management -acetaminophen 650 mg po Q6H prn for pain 1-3 -tramadol 50 mg Q8H prn for pain scale 4-6 -Oxycodone 5 mg Q6H PRN for pain scale 7-10 Code(s): R10.9 - UNSPECIFIED ABDOMINAL PAIN (4) Thrombocytopenia Assessment/Plan: -f/u with hematology outpatient Code(s): D69.6 - THROMBOCYTOPENIA, UNSPECIFIED (5) Urinary (tract) obstruction Assessment/Plan: -UC pending -On IV ceftriaxone Code(s): N13.9 - OBSTRUCTIVE AND REFLUX UROPATHY, UNSPECIFIED (6) Menorrhagia Assessment/Plan: -instructed to follow up with wheat grower outpatient Code(s): N92.0 - EXCESSIVE AND FREQUENT MENSTRUATION WITH REGULAR CYCLE Assessment/Plan see problem list
[2018-07-30] MEDS ORDERED: traMADol HCL 50 MG TABLET PO PRN (13:25)
[2018-07-30] MEDS: oxyCODONE HCL 5 MG TABLET PO PRN (13:40)
[2018-07-30] MEDS ORDERED: PT OWN MED DRAWER 7, Y5N ONE (14:30)
[2018-07-30] MEDS: DOCUSATE SODIUM 100 MG CAPSULE (FP) PO SCH (21:09)
[2018-07-31] MEDS: ACETAMINOPHEN 325 MG TABLET (FP) PO PRN ×3 (00:09→15:16)
[2018-07-31] MEDS ORDERED: DEXTROSE 5%-WATER - 50 ML IVPB ONE (09:25)
[2018-07-31] MEDS ORDERED: cefTRIAXone SODIUM 1 GM VIAL ONE (09:25)
[2018-07-31] MEDS: oxyCODONE HCL 5 MG TABLET PO PRN (09:28)
[2018-07-31] MEDS: FERROUS SO4 325 MG TABLET (FP) PO SCH (09:31)
[2018-07-31] MEDS: CEFTRIAXONE 1 GM in DEXTROSE 5%-WATER - 50 ML IVPB SCH (09:31)
[2018-07-31] MEDS: IRON SUCROSE INJECTION 300 MG in SODIUM CHLORIDE 235 ML IVPB SCH (10:16)
--- NOTE | 2018-07-31 10:42 | PN ---
Progress Note, Physician Chief Complaint: Anemia Thrombocytopenia Right hydronephrosis History of Present Illness: NAD walking in the hallway wants to go home UC pending CT abd/pel reviewed Does not see any rug cleaner CT showed fibroids- last saw POLYMER ENGINEER in 2 years ago- didn't know she has fibroids has hx of menorrhagia - Current Medication List Current Medications: Active Medications Acetaminophen (Tylenol -) 650 mg PO Q4H PRN PRN Reason: PAIN Last Admin: 07/31/18 09:30 Dose: 650 mg Docusate Sodium (Colace -) 300 mg PO HS LUISANA Last Admin: 07/30/18 21:09 Dose: 300 mg Ferrous Sulfate (Feosol -) 325 mg PO DAILY LUISANA Last Admin: 07/31/18 09:31 Dose: 325 mg Ceftriaxone Sodium 1 gm/ (Dextrose) 50 mls @ 100 mls/hr IVPB DAILY LUISANA; Protocol Last Admin: 07/31/18 09:31 Dose: 100 mls/hr Iron Sucrose 300 mg/ Sodium (Chloride) 250 mls @ 166.667 mls/hr IVPB DAILY LUISANA Stop: 08/01/18 11:29 Last Admin: 07/31/18 10:16 Dose: 166.667 mls/hr Oxycodone HCl (Roxicodone -) 5 mg PO Q6H PRN PRN Reason: PAIN LEVEL 7 - 10 Last Admin: 07/31/18 09:28 Dose: 5 mg Tramadol HCl (Ultram -) 50 mg PO Q8H PRN PRN Reason: PAIN LEVEL 4 - 6 Last Admin: 07/30/18 19:34 Dose: 50 mg - Objective Vital Signs: Vital Signs Temperature 98.0 F 07/31/18 07:47 Pulse Rate 83 07/31/18 07:47 Respiratory Rate 16 07/31/18 07:47 Blood Pressure 137/59 L 07/31/18 07:47 O2 Sat by Pulse Oximetry (%) 98 07/31/18 08:31 Constitutional: Yes: Well Nourished, No Distress, Calm Cardiovascular: Yes: Regular Rate and Rhythm Respiratory: Yes: Regular Gastrointestinal: Yes: Normal Bowel Sounds, Soft Musculoskeletal: Yes: WNL Extremities: Yes: WNL Edema: No Peripheral Pulses WNL: Yes Neurological: Yes: Alert, Oriented Psychiatric: Yes: Alert, Oriented Labs: CBC, BMP 07/30/18 07:15 07/29/18 09:53 INR, PTT INR 1.17 (0.83-1.09) H 07/28/18 21:33 Problem List - Problems (1) Anemia Assessment/Plan: -FREDIS -Avoids taking oral iron, causes constipation -Instructed to see hematology outpatient -Venofer 300 mg x 1 today -Monitor H/H Code(s): D64.9 - ANEMIA, UNSPECIFIED Qualifiers: Anemia type: unspecified type Qualified Code(s): D64.9 - Anemia, unspecified (2) Hydronephrosis of right kidney Assessment/Plan: -mild right hydronephrosis without obstruction Code(s): N13.30 - UNSPECIFIED HYDRONEPHROSIS (3) Right flank pain Assessment/Plan: -pain management -acetaminophen 650 mg po Q6H prn for pain 1-3 -tramadol 50 mg Q8H prn for pain scale 4-6 -Oxycodone 5 mg Q6H PRN for pain scale 7-10 Code(s): R10.9 - UNSPECIFIED ABDOMINAL PAIN (4) Thrombocytopenia Assessment/Plan: -f/u with hematology outpatient Code(s): D69.6 - THROMBOCYTOPENIA, UNSPECIFIED (5) Urinary (tract) obstruction Assessment/Plan: -UC pending -On IV ceftriaxone Code(s): N13.9 - OBSTRUCTIVE AND REFLUX UROPATHY, UNSPECIFIED (6) Menorrhagia Assessment/Plan: -instructed to follow up with ballet company member outpatient Code(s): N92.0 - EXCESSIVE AND FREQUENT MENSTRUATION WITH REGULAR CYCLE Assessment/Plan see problem list D/C on PO abx once ID clears
--- NOTE | 2018-07-31 11:59 | PN ---
Progress Note (short form) - Note Progress Note: still some intermittent right flank pain no fevers Vital Signs Period Temp Pulse Resp BP Sys/Burton Pulse Ox Last 24 Hr 97.8 F-98.9 F 79-93 16-20 101-137/55-74 98-98 cor-rrr lungs clear abd soft,nt mld right flank discomfort ext no edema CBC, BMP 07/30/18 07:15 07/29/18 09:53 Microbiology 07/28/18 21:33 Blood - Peripheral Venous Blood Culture - Preliminary NO GROWTH OBTAINED AFTER 48 HOURS, INCUBATION TO CONTINUE FOR 3 DAYS. 07/28/18 21:33 Blood - Peripheral Venous Blood Culture - Preliminary NO GROWTH OBTAINED AFTER 48 HOURS, INCUBATION TO CONTINUE FOR 3 DAYS. 07/28/18 22:30 Urine - Urine Clean Catch Urine Culture - Preliminary Gram Negative Dave a/p ?passed stone ecoli uti- [place] sensitive day #3 antibiotics spoke to micro can d/c on amox 500 tid for one week when ready for discharge check renal sono given conntinued complaints of flank pain should see marzipan molder as outpt for f/u of thrombocytopenia d/w PMD Problem List - Problems (1) Fever Code(s): R50.9 - FEVER, UNSPECIFIED (2) Right flank pain Code(s): R10.9 - UNSPECIFIED ABDOMINAL PAIN (3) Anemia Code(s): D64.9 - ANEMIA, UNSPECIFIED Qualifiers: Anemia type: unspecified type Qualified Code(s): D64.9 - Anemia, unspecified (4) Thrombocytopenia Code(s): D69.6 - THROMBOCYTOPENIA, UNSPECIFIED (5) Hydronephrosis of right kidney Code(s): N13.30 - UNSPECIFIED HYDRONEPHROSIS
[2018-07-31] MEDS: DOCUSATE SODIUM 100 MG CAPSULE (FP) PO SCH (21:50)
--- NOTE | 2018-08-01 09:02 | DS ---
Physical Examination Vital Signs: Vital Signs Temperature 98.4 F 08/01/18 06:00 Pulse Rate 92 H 08/01/18 06:00 Respiratory Rate 18 08/01/18 06:00 Blood Pressure 106/57 L 08/01/18 06:00 O2 Sat by Pulse Oximetry (%) 98 08/01/18 00:00 Constitutional: Yes: No Distress Eyes: Yes: WNL HENT: Yes: WNL Neck: Yes: WNL Cardiovascular: Yes: WNL Respiratory: Yes: WNL Gastrointestinal: Yes: WNL Renal/: Yes: WNL Musculoskeletal: Yes: WNL Extremities: Yes: WNL Edema: No Peripheral Pulses WNL: Yes Integumentary: Yes: WNL Wound/Incision: Yes: Clean/Dry Neurological: Yes: WNL ...Motor Strength: WNL Psychiatric: Yes: WNL Labs: CBC, BMP 07/30/18 07:15 07/29/18 09:53 Discharge Summary Reason For Visit: ANEMIA RIGHT FLANK PAIN Current Active Problems Anemia (Acute) Fever (Acute) Hydronephrosis of right kidney (Acute) Menorrhagia (Acute) Right flank pain (Acute) Thrombocytopenia (Acute) Urinary (tract) obstruction (Acute) Procedures: Principal: [facility] Hospital Course: ADMITTED FOR ACUTE UTI, ANEMIA, IRON DEF WITH IRON SUCROSE TRANSFUSIONS, DC ON AUGMENTIN PO BID Condition: Stable - Instructions Diet, Activity, Other Instructions: SEE DR DELONG FOR HEME CONSULT SEE YOUR PMD IN 2-3 DAYS Referrals: Deven Lemons MD [Staff Physician] - Brenda Brown MD [Staff Physician] - Aurelio aBrnes MD [Primary Care Provider] - Disposition: HOME - Home Medications Comprehensive Discharge Medication List: Ambulatory Orders Cyclobenzaprine HCl [Flexeril 10 mg] 10 mg PO HS PRN #10 tablet 07/26/18
[2018-08-01] MEDS: IRON SUCROSE INJECTION 300 MG in SODIUM CHLORIDE 235 ML IVPB SCH (10:01)
[2018-08-01] MEDS ORDERED: cefTRIAXone SODIUM 1 GM VIAL ONE (10:55)
[2018-08-01] MEDS: CEFTRIAXONE 1 GM in DEXTROSE 5%-WATER - 50 ML IVPB SCH (10:58)
[2018-08-01] MEDS: FERROUS SO4 325 MG TABLET (FP) PO SCH (10:58)
[2018-08-01 11:02] VITALS: BP 109/48; PULSE 83; TEMP 98.8
== END 2018-08-01 13:01 | disposition home or self-care (01) ==
LOC: JER 20:53 → JERBED 07-29 01:31 → UNDOADMOB 07-29 01:44 → J6S 07-29 18:00
PROVIDERS: ADMIT Internal Medicine; ATTEND Family Medicine
PROC: 3E03329 Introduction of Other Anti-infective into Peripheral Vein, Percutaneous Approach (ICD-10-PCS; principal; 2018-07-29)
PROC: 3E033GC Introduction of Other Therapeutic Substance into Peripheral Vein, Percutaneous Approach (ICD-10-PCS; 2018-07-29)
PROC: 3E0337Z Introduction of Electrolytic and Water Balance Substance into Peripheral Vein, Percutaneous Approach (ICD-10-PCS; 2018-07-29)
DX: D64.9 Anemia, unspecified (principal); R10.9 Unspecified abdominal pain; R00.0 Tachycardia, unspecified; R50.9 Fever, unspecified; D69.6 Thrombocytopenia, unspecified; N13.30 Unspecified hydronephrosis; N13.9 Obstructive and reflux uropathy, unspecified; N92.0 Excessive and frequent menstruation with regular cycle
CPT/HCPCS: 36415; 36430; 71045-TC-FY; 74177-TC; 76775-TC; 80048; 80053; 81003; 81015; 82728; 82803; 83540; 83550; 83605; 83735; 84443; 84484; 84702; 84703; 85025; 85610; 85730; 86850; 86900; 86901; 86922; 87040; 87086; 87186; 99284-25; G0378; J1756; P9038; P9058

== ENCOUNTER 2018-10-06 08:19 | Emergency (ER) | payer OTHER ==
[2018-10-06 08:29] VITALS: BP 138/86; PULSE 94; TEMP 97.5; BMI 29.0
--- NOTE | 2018-10-06 09:07 | PDOC ---
History of Present Illness - General Chief Complaint: Vaginal Bleeding Stated Complaint: VAGINAL BLEEDING, PAIN Time Seen by Provider: 10/06/18 09:07 - History of Present Illness Initial Comments: 37 year old female with history of fibroid uterus and right ovarian cyst presenting with intermenstrual lower abdominal pain that is similar in quality but worse in severity than her previous episodes of intermenstrual pain. She also notes that her period started 2 days earlier than usual. She tried Motrin x 2 early this morning without relief and has tried Tylenol in the past without much help. She has a engineer station mainline but cannot recall her name. She denies fevers , chills, nausea, vomiting, diarrhea, vaginal discharge, or other symptoms. 10/06/18 10:07 Past History - Past Medical History Allergies/Adverse Reactions: Allergies Allergy/AdvReac Type Severity Reaction Status Date / Time No Known Allergies Allergy Verified 07/28/18 21:09 Home Medications: Ambulatory Orders Cyclobenzaprine HCl [Flexeril 10 mg] 10 mg PO HS PRN #10 tablet 07/26/18 Acetaminophen [Tylenol .Regular Strength -] 650 mg PO Q4H PRN tablet 08/01/18 Amoxicillin/Potassium Clav [Augmentin 500-125 Tablet] 1 each PO BID #10 tablet 08/01/18 Docusate Sodium [Colace -] 300 mg PO HS #30 capsule 08/01/18 Ferrous Sulfate [Feosol] 325 mg PO DAILY #30 ud 08/01/18 Ibuprofen [Motrin -] 600 mg PO QID PRN #120 tablet 10/06/18 Anemia: Yes Cancer: No Cardiac Disorders: No CVA: No COPD: No CHF: No DVT: No Dementia: No - Immunization History Immunization Up to Date: Yes - Suicide/Smoking/Psychosocial Hx Smoking History: Never smoked Have you smoked in the past 12 months: No Number of Cigarettes Smoked Daily: 1 Information on smoking cessation initiated: No Hx Alcohol Use: No Drug/Substance Use Hx: No Substance Use Type: None Hx Substance Use Treatment: No Review of Systems - Review of Systems Constitutional: No: Chills, Diaphoresis, Fever HEENTM: No: Blurred Vision, Tearing Respiratory: No: Cough, Shortness of Breath Cardiac (ROS): No: Chest Pain, Irregular Heart Rate, Lightheadedness, Palpitations ABD/GI: No: Diarrhea, Difficulty Swallowing, Nausea, Vomiting : Yes: Other (vaginal bleeding). No: Dysuria, Discharge Integumentary: No: Lesions, Lumps, Pallor Neurological: No: Headache, Numbness, Paresthesia Hematologic/Lymphatic: No: Anemia, Blood Clots, Easy Bleeding *Physical Exam - Vital Signs Last Vital Signs Temp Pulse Resp BP Pulse Ox 97.5 F L 94 H 16 138/86 100 10/06/18 08:25 10/06/18 08:25 10/06/18 08:25 10/06/18 08:25 10/06/18 08:25 - Physical Exam General Appearance: Yes: Nourished, Appropriately Dressed. No: Apparent Distress HEENT: positive: EOMI, JOSEPH, Normal ENT Inspection, Normal Voice Neck: positive: Trachea midline, Normal Thyroid, Supple. negative: Tender Respiratory/Chest: positive: Lungs Clear, Normal Breath Sounds. negative: Chest Tender, Respiratory Distress, Accessory Muscle Use Cardiovascular: positive: Regular Rhythm, Regular Rate Female Pelvic Exam: positive: cervical os closed, normal adnexa (slight right adnexal tenderness). negative: normal external exam (scant blood near exit of the vagina.) Gastrointestinal/Abdominal: positive: Normal Bowel Sounds, Tender (lower midline abdominal tenderness), Flat, Soft Musculoskeletal: positive: Normal Inspection. negative: CVA Tenderness, Decreased Range of Motion Extremity: positive: Normal Capillary Refill, Normal Inspection, Normal Range of Motion. negative: Tender Integumentary: positive: Normal Color, Dry, Warm Neurologic: positive: Fully Oriented, Alert, Normal Mood/Affect, Normal Response , Motor Strength 5/5 Moderate Sedation - Procedure Monitoring Vital Signs: Procedure Monitoring Vital Signs Temperature 97.5 F L 10/06/18 08:25 Pulse Rate 94 H 10/06/18 08:25 Respiratory Rate 16 10/06/18 08:25 Blood Pressure 138/86 10/06/18 08:25 O2 Sat by Pulse Oximetry (%) 100 10/06/18 08:25 Medical Decision Making - Medical Decision Making 37 year old female with known large fibroids, ovarian cysts, and dysmenorrhea presenting with worsened dysmenorrhea for the past two days. States that she took Motrin this AM and Tylenol yesterday without relief. HCG negative, UA negative, [place] only significant for mild right adnexal tenderness. Symptoms improved with ibuprofen and tylenol. Will C with OB follow (her OB is Dr. Szymanski) up and return precautions. 10/06/18 11:28 *DC/Admit/Observation/Transfer Diagnosis at time of Disposition: Dysmenorrhea - Discharge Dispostion Disposition: HOME Condition at time of disposition: Improved Decision to Admit order: No - Prescriptions Prescriptions: Ibuprofen [Motrin -] 600 mg PO QID PRN #120 tablet PRN Reason: Pain Level 6-10 - Referrals - Patient Instructions Printed Discharge Instructions: DI for Uterine Fibroids Additional Instructions: Utilice el Motrin cada 4 horas segn sea necesario para el dolor. Necesita hacer un seguimiento con carter gineclogo para que le extraigan los fibromas o busque otra terapia para ellos. Por favor vuelva a nuestro servicio de urgencias si tiene algn empeoramiento del sangrado, dolor no controlado por Motrin u otros sntomas. - Post Discharge Activity
--- NOTE | 2018-10-06 09:10 | PDOC ---
Attending Attestation - Resident Resident Name: MiloAngemi - HPI HPI: 10/06/18 11:41 PT presents to the ED complaining of pelvic pain and vaginal bleeding that are similar to her chronic pelvic pain secondary to fibriods. Presented to the ED today because her pain was not controlled with motrin. Denies fever, nausea or vomiting or urinary complaints. - Physicial Exam PE: 10/06/18 11:43 Patient is alert and oriented and in no acute distress. Abdomen is soft, non tender and non distended. - Medical Decision Making 10/06/18 11:43 Pt presents to the ED complaining of vaginal bleeding and pelvic pain similar to her chronic fibroids. Pain resolved with toradol. Will discharge home with rx for motrin.
[2018-10-06 10:04] LABS: HCG,QUALITATIVE URINE Negative
[2018-10-06] MEDS ORDERED: ACETAMINOPHEN 500 MG TABLET (FP) PO ONE (10:08)
[2018-10-06 10:11] LABS: URINE APPEARANCE CLOUDY; URINE BILIRUBIN NEGATIVE (<2.0 mg/dL); URINE COLOR YELLOW; URINE GLUCOSE (UA) NEGATIVE (NEGATIVE); URINE KETONE NEGATIVE (NEGATIVE); URINE LEUK ESTERASE TRACE (NEGATIVE); URINE NITRITE NEGATIVE (NEGATIVE); URINE PROTEIN 1+ (NEGATIVE); URINE UROBILINOGEN NEGATIVE mg/dL (0.2-1.0)
[2018-10-06] MEDS ORDERED: IBUPROFEN 600 MG TABLET (FP) PO ONE ×2 (10:33→10:50)
[2018-10-06] MEDS ORDERED: ACETAMINOPHEN 500 MG TABLET (FP) ONE (10:33)
[2018-10-06 10:34] LABS: EPI CELLS RARE /HPF (FEW); URINE MUCUS FEW
== END 2018-10-06 11:51 | disposition home or self-care (01) ==
LOC: JER 08:19
DX: N94.6 Dysmenorrhea, unspecified (principal); D25.9 Leiomyoma of uterus, unspecified; N83.201 Unspecified ovarian cyst, right side; D64.9 Anemia, unspecified
CPT/HCPCS: 81003; 81015; 84703; 87086; 99281-25

== ENCOUNTER 2019-11-14 15:51 | Inpatient (IN) | payer OTHER ==
--- NOTE | 2019-11-14 17:35 | PDOC ---
History of Present Illness - General Chief Complaint: Pain Stated Complaint: LOWER ABDOMEN PAIN Time Seen by Provider: 11/14/19 16:37 History Source: Patient - History of Present Illness Timing/Duration: reports: getting worse Quality: reports: severe Pain Radiation: reports: flank Past History - Past Medical History Allergies/Adverse Reactions: Allergies Allergy/AdvReac Type Severity Reaction Status Date / Time No Known Allergies Allergy Verified 11/14/19 16:02 Home Medications: Ambulatory Orders Iron,Carb/Vit C/Vit B12/Folic [Fe C Plus Tablet] 1 each PO BID #60 tablet Anemia: Yes Cancer: No Cardiac Disorders: No CVA: No COPD: No CHF: No DVT: No Dementia: No - Immunization History Immunization Up to Date: Yes - Psycho Social/Smoking Cessation Hx Smoking History: Never smoked Have you smoked in the past 12 months: No Number of Cigarettes Smoked Daily: 1 Hx Alcohol Use: No Drug/Substance Use Hx: No Substance Use Type: None Hx Substance Use Treatment: No Review of Systems - Review of Systems Constitutional: No: Chills, Fever ABD/GI: Yes: Abdominal cramping. No: Blood Streaked Bowels, Constipated, Diarrhea, Nausea, Rectal Bleeding, Vomiting, Tarry Stools : Yes: Flank Pain. No: Burning, Dysuria, Hematuria *Physical Exam - Vital Signs Last Vital Signs Temp Pulse Resp BP Pulse Ox 98 F 100 H 18 129/54 L 100 11/14/19 15:59 11/14/19 15:59 11/14/19 15:59 11/14/19 15:59 11/14/19 15:59 - Physical Exam General Appearance: Yes: Appropriately Dressed, Moderate Distress HEENT: positive: Normal Voice Neck: positive: Supple Respiratory/Chest: negative: Respiratory Distress Gastrointestinal/Abdominal: positive: Tender (poorly localized ttp to L side of abd, no overt CVAT) Musculoskeletal: negative: CVA Tenderness Integumentary: positive: Dry, Warm Neurologic: positive: Fully Oriented, Alert, Normal Mood/Affect ED Treatment Course - LABORATORY CBC & Chemistry Diagram: 11/17/19 07:05 11/17/19 07:05 Medical Decision Making - Medical Decision Making 11/14/19 17:35 39 yo F, history of anemia (denies transfusion), fibroids, UTI/pyelo here with severe L flank pain that started yesterday. Currently has her menses and does have abdominal pain with menstruation but states current pain feels worse. No dysuria, frequency, nausea, vomiting, fever, chills or change in bowel movements. Also reports dizziness of unclear duration. No CP or SOB see exam R/o recurrent uti/pyelo vs dysmenorrhea vs diverticulitis, less likely renal colic -pain control -IVF -labs -?CT Dizziness H/o anemia, no CP or SOB -cbc pending 11/19/19 07:25 Discharge - Discharge Information Problems reviewed: Yes Clinical Impression/Diagnosis: Left flank pain Anemia Qualifiers: Anemia type: unspecified type Qualified Code(s): D64.9 - Anemia, unspecified Condition: Fair Disposition: HOME - Follow up/Referral - Patient Discharge Instructions - Post Discharge Activity
[2019-11-14] MEDS ORDERED: KETOROLAC TROMETHAMINE 30 MG/1 ML VIAL IVPUSH ONE (17:38)
[2019-11-14] MEDS ORDERED: SODIUM CHLORIDE 1,000 ML IV STA (17:38)
[2019-11-14 19:20] LABS: EPI CELLS 0 /HPF (0-5/HPF); HYALINE CASTS 0 /lpf (0-8); URINE APPEARANCE BLOODY; URINE BACTERIA FEW /hpf (NEGATIVE); URINE COLOR RED; URINE RBC >100 /hpf (0-4); URINE WBC 0 /hpf (0-5)
[2019-11-14] MEDS ORDERED: KETOROLAC TROMETHAMINE 30 MG/1 ML VIAL ONE (19:42)
[2019-11-14 21:28] LABS: MCHC 24.8 g/dl (32.0-36.0); MEAN CELL VOLUME 52.1 fl (80-96); RBC 4.91 M/mm3 (3.60-5.2); RDW 21.7 % (11.6-15.6); WHITE BLOOD COUNT 5.7 K/mm3 (4.0-10.0)
[2019-11-14 21:31] LABS: MCH 12.9 pg (25.7-33.7)
[2019-11-14 21:34] LABS: HEMATOCRIT 25.6 % (32.4-45.2); HEMOGLOBIN 6.3 GM/dL (10.7-15.3)
[2019-11-14 21:49] LABS: ALBUMIN 3.5 g/dl (3.4-5.0); ALK PHOS 77 U/L (45-117); ANION GAP 9 MMOL/L (8-16); BILIRUBIN,TOTAL < 0.1 mg/dL (0.2-1); BLOOD UREA NITROGEN 6.1 mg/dL (7-18); CALCIUM 8.3 mg/dL (8.5-10.1); CHLORIDE 106 mmol/L (98-107); CO2 24 mmol/L (21-32); CREATININE 0.6 mg/dL (0.55-1.3); GLUCOSE,RANDOM 115 mg/dL (74-106); POTASSIUM 3.6 mmol/L (3.5-5.1); SGOT/AST 11 U/L (15-37); SGPT/ALT 15 U/L (13-61); SODIUM 139 mmol/L (136-145); TOT PROT 6.8 g/dl (6.4-8.2)
--- NOTE | 2019-11-14 22:15 | PDOC ---
*Physical Exam - Vital Signs Last Vital Signs Temp Pulse Resp BP Pulse Ox 98 F 100 H 18 129/54 L 100 11/14/19 15:59 11/14/19 15:59 11/14/19 15:59 11/14/19 15:59 11/14/19 15:59 - Physical Exam General Appearance: Yes: Appropriately Dressed. No: Apparent Distress HEENT: positive: Pale Conjunctivae Respiratory/Chest: positive: Lungs Clear, Normal Breath Sounds. negative: Respiratory Distress, Accessory Muscle Use Cardiovascular: positive: Regular Rhythm, Regular Rate. negative: Murmur Comments:: 11/15/19 00:39 RN Andra present as internet marketing strategist. Female Pelvic Exam: positive: normal external exam, cervical os closed, normal adnexa, normal size ovaries, vaginal bleeding (No pooling present.), other (No lacerations or trauma noted.). negative: CMT, discharge Gastrointestinal/Abdominal: positive: Normal Bowel Sounds, Soft. negative: Tender Musculoskeletal: positive: CVA Tenderness (L) Integumentary: positive: Dry, Warm, Pale Neurologic: positive: Fully Oriented, Alert ED Treatment Course - LABORATORY CBC & Chemistry Diagram: 11/14/19 19:30 11/14/19 19:30 - ADDITIONAL ORDERS Additional order review: Laboratory Results 11/14/19 11/14/19 11/14/19 19:30 18:07 18:07 Sodium 139 Potassium 3.6 Chloride 106 Carbon Dioxide 24 Anion Gap 9 BUN 6.1 L Creatinine 0.6 Est GFR (CKD-EPI)AfAm 134.96 Est GFR (CKD-EPI)NonAf 116.44 Random Glucose 115 H Calcium 8.3 L Total Bilirubin < 0.1 L AST 11 L ALT 15 Alkaline Phosphatase 77 Total Protein 6.8 Albumin 3.5 Urine Color Red Urine Appearance Bloody Urine pH No Result Required. Ur Specific [place] No Result Required. Urine Protein No Result Required. Urine Glucose (UA) No Result Required. Urine Ketones No Result Required. Urine Blood No Result Required. Urine Nitrite No Result Required. Urine Bilirubin No Result Required. Urine Urobilinogen No Result Required. Ur Leukocyte Esterase No Result Required. Urine WBC (Auto) 0 Urine RBC (Auto) >100 Urine Casts (Auto) 0 U Epithel Cells (Auto) 0 Urine Bacteria (Auto) Few Urine HCG, Qual Negative 11/14/19 19:30 RBC 4.91 MCV 52.1 L MCHC 24.8 L RDW 21.7 H Neutrophils % 36.1 L D Lymphocytes % 53.3 H D Monocytes % 4.6 Eosinophils % 4.6 H Basophils % 1.4 - RADIOLOGY Radiology Studies Ordered: Category Date Time Status ABDOMEN & PELVIS CT WITH CONTR [CT] Stat CT Scan 11/14/19 21:55 Ordered - Medications Given in the ED: ED Medications Discontinued Medications Generic Name Dose Route Start Last Admin Trade Name Zhanna PRN Reason Stop Dose Admin Sodium Chloride 1,000 mls @ 1,000 mls/hr 11/14/19 17:38 11/14/19 19:58 Normal Saline - IV 11/14/19 18:37 1,000 mls/hr ASDIR STA Administration Ketorolac Tromethamine 30 mg 11/14/19 17:38 11/14/19 19:59 Toradol Injection - IVPUSH 11/14/19 17:39 30 mg ONCE ONE Administration ED Progress Note - Progress Note Progress Note: 11/14/19 22:17 Received signout from GINA Mcduffie. Briefly this a 39-year-old woman with a history of anemia and fibroids with severe left flank pain that started yesterday. Patient is currently menstruating and having cramping pain consistent with her menstruation but this pain is additional and different from her usual menses. Denies dysuria, frequency, nausea, vomiting, fever, chills or change in bowel pattern. Urinalysis notable for trupti blood Laboratory testing pending Disposition pending laboratory testing Medical Decision Making - Medical Decision Making 11/14/19 22:18 Hemoglobin noted to be 6.3 hematocrit 25.6. Patient with continued poorly localized left lower quadrant pain/left flank pain. Type and screen CT abdomen and pelvis with IV contrast Transfuse Likely admission 11/15/19 00:10 CT scan is read by imaging on-call: Heterogeneous enhancement of the uterus suggestive of fibroids and/or adenomyosis. Prominent ovaries with likely multiple follicles and trace fluid fluid in the pelvis. Consider further characterization with ultrasound. Otherwise unremarkable CT 11/15/19 00:42 Pelvic exam notable for vaginal bleeding. No pooling of the blood. No lacerations or brisk hemorrhage noted. Contact hospitalist for admission 11/15/19 01:43 EKG sinus rhythm with rate of 88. Normal intervals present. Normal axis. No ischemic changes noted. Case has been discussed with nurse practitioner Curly of the hospitalist service [facility] 11/15/19 01:54 Discharge - Discharge Information Problems reviewed: Yes Clinical Impression/Diagnosis: Anemia, Left flank pain Condition: Fair - Admission Yes - Follow up/Referral - Patient Discharge Instructions - Post Discharge Activity
[2019-11-14 22:33] LABS: MEAN PLT VOLUME 9.9 fl (7.5-11.1); PLATELET COUNT 191 K/MM3 (134-434)
[2019-11-14 22:34] LABS: ANISOCYTOSIS 2+
[2019-11-14 22:35] LABS: MACROCYTOSIS 1+; OVALOCYTE 1+; PLATELET ESTIMATE ADEQUATE; TEAR DROP CELLS 1+
--- NOTE | 2019-11-15 02:41 | HP ---
Admitting History and Physical - Primary Care Physician PCP: Edgardo Molina - Admission Chief Complaint: Flank Pain History of Present Illness: This is a 39 y/o woman with a PMHx of Anemia (blood transfusion in the past), Uterine Fibroids. Who presents to the ED with flank pain, abdominal cramping and heavier menstrual bleeding than usual. Patient reports that she has Fibroids and her menses is heavier than normal. Patient also reports having flank pain. 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 History of Recent Travel: No Home Medications - Allergies Allergies/Adverse Reactions: Allergies Allergy/AdvReac Type Severity Reaction Status Date / Time No Known Allergies Allergy Verified 11/14/19 16:02 - Home Medications Home Medications: Ambulatory Orders Cyclobenzaprine HCl [Flexeril 10 mg] 10 mg PO HS PRN #10 tablet 07/26/18 Acetaminophen [Tylenol .Regular Strength -] 650 mg PO Q4H PRN tablet 08/01/18 Amoxicillin/Potassium Clav [Augmentin 500-125 Tablet] 1 each PO BID #10 tablet 08/01/18 Docusate Sodium [Colace -] 300 mg PO HS #30 capsule 08/01/18 Ferrous Sulfate [Feosol] 325 mg PO DAILY #30 ud 08/01/18 Ibuprofen [Motrin -] 600 mg PO QID PRN #120 tablet 10/06/18 Review of Systems - Review of Systems Constitutional: reports: No Symptoms Eyes: reports: No Symptoms HENT: reports: No Symptoms Neck: reports: No Symptoms Cardiovascular: reports: No Symptoms Respiratory: reports: No Symptoms Gastrointestinal: reports: No Symptoms Genitourinary: reports: Flank Pain, Menses, Vaginal Bleeding Breasts: reports: No Symptoms Reported Musculoskeletal: reports: No Symptoms Integumentary: reports: No Symptoms Neurological: reports: No Symptoms Endocrine: reports: No Symptoms Hematology/Lymphatic: reports: No Symptoms Psychiatric: reports: No Symptoms Pain Intensity: 6 Physical Examination Vital Signs: Vital Signs Temperature 98.6 F 11/15/19 00:02 Pulse Rate 90 11/15/19 00:02 Respiratory Rate 16 11/15/19 00:02 Blood Pressure 114/57 L 11/15/19 00:02 O2 Sat by Pulse Oximetry (%) 100 11/15/19 00:02 Labs: CBC, BMP 11/14/19 19:30 11/14/19 19:30 Laboratory Results - last 24 hr 11/14/19 11/14/19 11/14/19 18:07 18:07 19:30 WBC 5.7 RBC 4.91 Hgb 6.3 L* Hct 25.6 L MCV 52.1 L MCH 12.9 L D MCHC 24.8 L RDW 21.7 H Plt Count 191 D MPV 9.9 Absolute Neuts (auto) Respiratory Care Faculty Total Counted 100 Neutrophils % Respiratory Care Faculty Neutrophils % (Manual) 56.0 Lymphocytes % Respiratory Care Faculty Lymphocytes % (Manual) 30.0 Monocytes % Respiratory Care Faculty Monocytes % (Manual) 8 Eosinophils % Respiratory Care Faculty Eosinophils % (Manual) 6.0 H Basophils % Respiratory Care Faculty Nucleated RBC % 0 Differential Comment Man diff performed Hypochromia 3+ Platelet Estimate Adequate Platelet Comment No clotting detected Polychromasia 1+ Poikilocytosis 2+ Anisocytosis 2+ Microcytosis 3+ Macrocytosis 1+ Tear Drop Cells 1+ Ovalocytes 1+ Fragmented RBCs 1+ Sodium Potassium Chloride Carbon Dioxide Anion Gap BUN Creatinine Est GFR (CKD-EPI)AfAm Est GFR (CKD-EPI)NonAf Random Glucose Calcium Total Bilirubin AST ALT Alkaline Phosphatase Total Protein Albumin Urine Color Red Urine Appearance Bloody Urine pH No Result Required. Ur Specific [place] No Result Required. Urine Protein No Result Required. Urine Glucose (UA) No Result Required. Urine Ketones No Result Required. Urine Blood No Result Required. Urine Nitrite No Result Required. Urine Bilirubin No Result Required. Urine Urobilinogen No Result Required. Ur Leukocyte Esterase No Result Required. Urine WBC (Auto) 0 Urine RBC (Auto) >100 Urine Casts (Auto) 0 U Epithel Cells (Auto) 0 Urine Bacteria (Auto) Few Urine HCG, Qual Negative Blood Type Antibody Screen Crossmatch 11/14/19 11/14/19 19:30 22:30 WBC RBC Hgb Hct MCV MCH MCHC RDW Plt Count MPV Absolute Neuts (auto) Total Counted Neutrophils % Neutrophils % (Manual) Lymphocytes % Lymphocytes % (Manual) Monocytes % Monocytes % (Manual) Eosinophils % Eosinophils % (Manual) Basophils % Nucleated RBC % Differential Comment Hypochromia Platelet Estimate Platelet Comment Polychromasia Poikilocytosis Anisocytosis Microcytosis Macrocytosis Tear Drop Cells Ovalocytes Fragmented RBCs Sodium 139 Potassium 3.6 Chloride 106 Carbon Dioxide 24 Anion Gap 9 BUN 6.1 L Creatinine 0.6 Est GFR (CKD-EPI)AfAm 134.96 Est GFR (CKD-EPI)NonAf 116.44 Random Glucose 115 H Calcium 8.3 L Total Bilirubin < 0.1 L AST 11 L ALT 15 Alkaline Phosphatase 77 Total Protein 6.8 Albumin 3.5 Urine Color Urine Appearance Urine pH Ur Specific [place] Urine Protein Urine Glucose (UA) Urine Ketones Urine Blood Urine Nitrite Urine Bilirubin Urine Urobilinogen Ur Leukocyte Esterase Urine WBC (Auto) Urine RBC (Auto) Urine Casts (Auto) U Epithel Cells (Auto) Urine Bacteria (Auto) Urine HCG, Qual Blood Type A POSITIVE Antibody Screen Negative Crossmatch See Detail Intake & Output 11/12/19 11/13/19 11/14/19 11/15/19 23:59 23:59 23:59 23:59 Weight 76.204 kg Imaging - Results Chest X-ray: Image Reviewed Cat Scan: Report Reviewed, Image Reviewed Problem List - Problems (1) Anemia Code(s): D64.9 - ANEMIA, UNSPECIFIED (2) Menorrhagia Code(s): N92.0 - EXCESSIVE AND FREQUENT MENSTRUATION WITH REGULAR CYCLE (3) Left flank pain Code(s): R10.9 - UNSPECIFIED ABDOMINAL PAIN Assessment/Plan This is a 39 y/o woman with a PMHx of Anemia (blood transfusion in the past), Uterine Fibroids. Patient admitted for Symptomatic Anemia, Menorrhagia, Flank Pain for further evaluation of their emergent condition. Plan: # Symptomatic Anemia Hgb 6.3 PRBCs x2 ordered by ED HAT CONE INSPECTOR-pending Patient is currently menstruating, likely cause due to fibroid hx Will start on Ferrous sulfate Monitor CBC Monitor vitals # Menorrhagia hx Fibroids CTAP reviewed Consider FACILITIES ASSISTANT consult or f/u outpatient # Flank Pain UA- bloody secondary to active menses, neg UTI Urine Culture-pending Blood Culture-pending CTAP- reviewed No Leukocytosis, no neutrophilia, patient is afebrile Toradol given in ED Tylenol prn Monitor CBC, BMP Monitor vitals FEN PO fluids as tolerated Replete lytes prn Regular Diet DVT ppx OOB SCDs Hold AC secondary to Anemia Dispo: Requires Inpatient Care Visit type - Emergency Visit Emergency Visit: Yes ED Registration Date: 11/14/19 Care time: The patient presented to the Emergency Department on the above date and was hospitalized for further evaluation of their emergent condition. - New Patient This patient is new to me today: Yes Date on this admission: 11/15/19 - Critical Care Critical Care patient: No
--- NOTE | 2019-11-15 09:40 | PN ---
Progress Note, Physician - Objective Vital Signs: Vital Signs Temperature 98.2 F 11/15/19 03:05 Pulse Rate 86 11/15/19 03:05 Respiratory Rate 18 11/15/19 03:05 Blood Pressure 116/61 11/15/19 03:05 O2 Sat by Pulse Oximetry (%) 99 11/15/19 03:05 Cardiovascular: Yes: Regular Rate and Rhythm Respiratory: Yes: Regular, CTA Bilaterally Gastrointestinal: Yes: Normal Bowel Sounds, Soft. No: Tenderness Edema: No Problem List - Problems (1) Anemia Assessment/Plan: Hgb 6.3--s/p prbc--await repeat Patient is currently menstruating, likely cause due to fibroid hx on Ferrous sulfate Monitor CBC Monitor vitals Code(s): D64.9 - ANEMIA, UNSPECIFIED (2) Left flank pain Assessment/Plan: UA- bloody secondary to active menses, neg UTI Urine Culture-pending Blood Culture-pending CTAP- ? hydro vs fallopian tube pelvic us No Leukocytosis, no neutrophilia, patient is afebrile Tylenol prn Monitor CBC, BMP Monitor vitals Code(s): R10.9 - UNSPECIFIED ABDOMINAL PAIN (3) Menorrhagia Assessment/Plan: hx Fibroids CTAP cyst? adnexal fulness GI ASST consult Code(s): N92.0 - EXCESSIVE AND FREQUENT MENSTRUATION WITH REGULAR CYCLE
[2019-11-15 09:48] LABS: BASO % 0.9 % (0-2.0); EOS % 5.1 % (0-4.5); HEMATOCRIT 28.6 % (32.4-45.2); HEMOGLOBIN 7.7 GM/dL (10.7-15.3); MCHC 26.9 g/dl (32.0-36.0); MEAN CELL VOLUME 55.6 fl (80-96); MEAN PLT VOLUME 10.4 fl (7.5-11.1); MONO % 3.9 % (3.8-10.2); NEUT % 32.1 % (42.8-82.8); PLATELET COUNT 172 K/MM3 (134-434); RBC 5.14 M/mm3 (3.60-5.2); WHITE BLOOD COUNT 5.6 K/mm3 (4.0-10.0)
[2019-11-15 09:50] LABS: MCH 14.9 pg (25.7-33.7)
[2019-11-15 10:23] LABS: CALCIUM 8.5 mg/dL (8.5-10.1); CREATININE 0.5 mg/dL (0.55-1.3); POTASSIUM 3.8 mmol/L (3.5-5.1)
[2019-11-15 10:28] LABS: BLOOD UREA NITROGEN 2.9 mg/dL (7-18)
--- NOTE | 2019-11-15 11:15 | CONSULT ---
Consultation: REQUESTING PROVIDER:primary team Dr romero CONSULT REQUEST: We have been asked to medically evaluate this patient for ( anemia ). HISTORY OF PRESENT ILLNESS: 39 y/o woman with a PMHx of Anemia (blood transfusion in the past), Uterine Fibroids. Who presents to the ED with flank pain, abdominal cramping and heavier menstrual bleeding than usual. Patient reports that she has Fibroids and her menses is heavier than normal. Patient also reports having flank pain. Patient denies fever, chills, cough, dizziness, BOWLES, SOB, CP, palpitations, N/V/D, constipation, dysuria pt reports dizziness and light headedness when she get up of bed she reports palliation but no chest pain , she reports 3 days history of abdominal pain LUQ and periumbilical comes and goes 5- , not related to food she reports using motrin for pain denies any weight loss or recent travel REVIEW OF SYSTEMS: CONSTITUTIONAL: Absent: fever, chills, diaphoresis, generalized weakness, malaise, loss of appetite, weight change HEENT: Absent: rhinorrhea, nasal congestion, throat pain, throat swelling, difficulty swallowing, mouth swelling, ear pain, eye pain, visual changes CARDIOVASCULAR: Absent: chest pain, syncope, palpitations, irregular heart rate, lightheadedness , peripheral edema RESPIRATORY: Absent: cough, shortness of breath, dyspnea with exertion, orthopnea, wheezing, stridor, hemoptysis GASTROINTESTINAL: Absent: abdominal pain, abdominal distension, nausea, vomiting, diarrhea, constipation, melena, hematochezia GENITOURINARY: Absent: dysuria, frequency, urgency, hesitancy, hematuria, flank pain, genital pain MUSCULOSKELETAL: Absent: myalgia, arthralgia, joint swelling, back pain, neck pain SKIN: Absent: rash, itching, pallor HEMATOLOGIC/IMMUNOLOGIC: Absent: easy bleeding, easy bruising, lymphadenopathy, frequent infections ENDOCRINE: Absent: unexplained weight gain, unexplained weight loss, heat intolerance, cold intolerance NEUROLOGIC: Absent: headache, focal weakness or paresthesias, dizziness, unsteady gait, seizure, mental status changes, bladder or bowel incontinence PSYCHIATRIC: Absent: anxiety, depression, suicidal or homicidal ideation, hallucinations. PHYSICAL EXAMINATION Vital Signs - 24 hr 11/14/19 11/14/19 11/15/19 15:59 23:00 00:02 Temperature 98 F 98.2 F 98.6 F Pulse Rate 100 H Pulse Rate [ Apical] Pulse Rate [ 79 90 Right Radial] Respiratory 18 18 16 Rate Blood Pressure 129/54 L Blood Pressure 110/55 L 114/57 L [Right Arm] O2 Sat by Pulse 100 100 100 Oximetry (%) 11/15/19 11/15/19 02:50 03:05 Temperature 98.4 F 98.2 F Pulse Rate Pulse Rate [ 86 Apical] Pulse Rate [ 81 Right Radial] Respiratory 18 18 Rate Blood Pressure Blood Pressure 109/59 L 116/61 [Right Arm] O2 Sat by Pulse 99 99 Oximetry (%) GENERAL: Awake, alert, and fully oriented, in no acute distress. HEAD: Normal with no signs of trauma. EYES: Pupils equal, round and reactive to light, extraocular movements intact, left eye small ieies opal spot (arcus sinilis ) EARS, NOSE, THROAT: Moist mucous membranes. NECK: supple without lymphadenopathy, no myoph nodes was palpated in submandibular , axillary and inguinal area breast : no palpated mas or nodules LUNGS: Breath sounds equal, clear to auscultation bilaterally. No wheezes, HEART: Regular rate and rhythm, normal S1 and S2 without murmur, rub or gallop. ABDOMEN: Soft, periumbilical tenderness ,mild distended, normoactive bowel sounds LOWER EXTREMITIES: 2+ pulses, warm, well-perfused. No calf tenderness. No peripheral edema. NEUROLOGICAL: no focal deficit , Normal speech. PSYCHIATRIC: Cooperative. Good eye contact. SKIN: Warm, dry, normal turgor, Laboratory Results - last 24 hr 11/14/19 11/14/19 11/14/19 18:07 18:07 19:30 WBC 5.7 RBC 4.91 Hgb 6.3 L* Hct 25.6 L MCV 52.1 L MCH 12.9 L D MCHC 24.8 L RDW 21.7 H Plt Count 191 D MPV 9.9 Absolute Neuts (auto) Showroom Consultant Total Counted 100 Neutrophils % Showroom Consultant Neutrophils % (Manual) 56.0 Lymphocytes % Showroom Consultant Lymphocytes % (Manual) 30.0 Monocytes % Showroom Consultant Monocytes % (Manual) 8 Eosinophils % Showroom Consultant Eosinophils % (Manual) 6.0 H Basophils % Showroom Consultant Nucleated RBC % 0 Differential Comment Man diff performed Hypochromia 3+ Platelet Estimate Adequate Platelet Comment No clotting detected Polychromasia 1+ Poikilocytosis 2+ Anisocytosis 2+ Microcytosis 3+ Macrocytosis 1+ Tear Drop Cells 1+ Ovalocytes 1+ Fragmented RBCs 1+ Sodium Potassium Chloride Carbon Dioxide Anion Gap BUN Creatinine Est GFR (CKD-EPI)AfAm Est GFR (CKD-EPI)NonAf Random Glucose Calcium Total Bilirubin AST ALT Alkaline Phosphatase Total Protein Albumin Urine Color Red Urine Appearance Bloody Urine pH No Result Required. Ur Specific [place] No Result Required. Urine Protein No Result Required. Urine Glucose (UA) No Result Required. Urine Ketones No Result Required. Urine Blood No Result Required. Urine Nitrite No Result Required. Urine Bilirubin No Result Required. Urine Urobilinogen No Result Required. Ur Leukocyte Esterase No Result Required. Urine WBC (Auto) 0 Urine RBC (Auto) >100 Urine Casts (Auto) 0 U Epithel Cells (Auto) 0 Urine Bacteria (Auto) Few Urine HCG, Qual Negative Blood Type Antibody Screen Crossmatch 11/14/19 11/14/19 11/15/19 19:30 22:30 09:00 WBC 5.6 RBC 5.14 Hgb 7.7 L Hct 28.6 L MCV 55.6 L D MCH 14.9 L D MCHC 26.9 L RDW 22.0 H Plt Count 172 MPV 10.4 Absolute Neuts (auto) 1.8 Total Counted Neutrophils % 32.1 L D Neutrophils % (Manual) Lymphocytes % 58.0 H D Lymphocytes % (Manual) Monocytes % 3.9 Monocytes % (Manual) Eosinophils % 5.1 H Eosinophils % (Manual) Basophils % 0.9 Nucleated RBC % 0 Differential Comment Hypochromia Platelet Estimate Platelet Comment Polychromasia Poikilocytosis Anisocytosis Microcytosis Macrocytosis Tear Drop Cells Ovalocytes Fragmented RBCs Sodium 139 Potassium 3.6 Chloride 106 Carbon Dioxide 24 Anion Gap 9 BUN 6.1 L Creatinine 0.6 Est GFR (CKD-EPI)AfAm 134.96 Est GFR (CKD-EPI)NonAf 116.44 Random Glucose 115 H Calcium 8.3 L Total Bilirubin < 0.1 L AST 11 L ALT 15 Alkaline Phosphatase 77 Total Protein 6.8 Albumin 3.5 Urine Color Urine Appearance Urine pH Ur Specific [place] Urine Protein Urine Glucose (UA) Urine Ketones Urine Blood Urine Nitrite Urine Bilirubin Urine Urobilinogen Ur Leukocyte Esterase Urine WBC (Auto) Urine RBC (Auto) Urine Casts (Auto) U Epithel Cells (Auto) Urine Bacteria (Auto) Urine HCG, Qual Blood Type A POSITIVE Antibody Screen Negative Crossmatch See Detail 11/15/19 09:00 WBC RBC Hgb Hct MCV MCH MCHC RDW Plt Count MPV Absolute Neuts (auto) Total Counted Neutrophils % Neutrophils % (Manual) Lymphocytes % Lymphocytes % (Manual) Monocytes % Monocytes % (Manual) Eosinophils % Eosinophils % (Manual) Basophils % Nucleated RBC % Differential Comment Hypochromia Platelet Estimate Platelet Comment Polychromasia Poikilocytosis Anisocytosis Microcytosis Macrocytosis Tear Drop Cells Ovalocytes Fragmented RBCs Sodium 141 Potassium 3.8 Chloride 108 H Carbon Dioxide 25 Anion Gap 7 L BUN 2.9 L* Creatinine 0.5 L Est GFR (CKD-EPI)AfAm 143.30 Est GFR (CKD-EPI)NonAf 123.64 Random Glucose 104 Calcium 8.5 Total Bilirubin AST ALT Alkaline Phosphatase Total Protein Albumin Urine Color Urine Appearance Urine pH Ur Specific [place] Urine Protein Urine Glucose (UA) Urine Ketones Urine Blood Urine Nitrite Urine Bilirubin Urine Urobilinogen Ur Leukocyte Esterase Urine WBC (Auto) Urine RBC (Auto) Urine Casts (Auto) U Epithel Cells (Auto) Urine Bacteria (Auto) Urine HCG, Qual Blood Type Antibody Screen Crossmatch CBC, BMP 11/15/19 09:00 11/15/19 09:00 ASSESSMENT/PLAN: 39 year old female with history of fibroid presented with abdominal pain and was found to have HGb 6.3 , we were consulted rodriguez anemia #sever Microcytic hypochromic anemia ,likely due to mennorrhagia 2/2 fibroid can not R.O Thalasemia as low MVC 50 and normal RBC 4.5 will send Hemoglobin eleectriopheresis has transfusion in the past * HGb 6.3 transfuse one unit ... 7.7 * MCV 52, mchc 24 m RDW 21 * iron studies and ferritin very low 3 will start fenofer infusion 200 mg daily for 3 days * occult blood stool as pt taking a lot of Motrin to R.O gastric ulcer * avoid NSAIDS * normal transfusion threshold * CT A/P with hydrosalpinx * glue cook consult # SIDDHARTHA likely due to hypoperfusion vs post renal obstruction * US * IV hydration * renal consult * Dispo: We will continue to follow the patient. Thank you for this consultative opportunity. Visit type - Emergency Visit Emergency Visit: Yes ED Registration Date: 11/15/19 Care time: The patient presented to the Emergency Department on the above date and was hospitalized for further evaluation of their emergent condition. - New Patient This patient is new to me today: Yes Date on this admission: 11/15/19 - Critical Care Critical Care patient: No ATTENDING PHYSICIAN STATEMENT I saw and evaluated the patient. I reviewed the resident's note and discussed the case with the resident. I agree with the resident's findings and plan as documented. SUBJECTIVE: OBJECTIVE: ASSESSMENT AND PLAN:
--- NOTE | 2019-11-15 11:28 | EKG ---
Test Reason : Blood Pressure : / mmHG Vent. Rate : 088 BPM Atrial Rate : 088 BPM P-R Int : 142 ms QRS Dur : 082 ms QT Int : 380 ms P-R-T Axes : 053 054 037 degrees QTc Int : 459 ms NORMAL SINUS RHYTHM NORMAL ECG NO PREVIOUS ECGS AVAILABLE Confirmed by DARI GARCIA, RAMYA ([id number]) on 11/15/2019 11:28:14 AM Referred By: Confirmed By:RAMYA CHAPIN MD
[2019-11-15 11:52] VITALS: BMI 26.9
[2019-11-15] MEDS ORDERED: SODIUM CHLORIDE 1,000 ML IV STA (12:03)
[2019-11-15] MEDS ORDERED: IRON SUCROSE INJECTION 200 MG in SODIUM CHLORIDE 90 ML IVPB ONE (19:00)
[2019-11-15] MEDS: SODIUM CHLORIDE 1,000 ML IV SCH (20:42)
--- NOTE | 2019-11-16 07:45 | PN ---
Teaching Attending Note Name of Resident: Ramy Sin ATTENDING PHYSICIAN STATEMENT I saw and evaluated the patient. I reviewed the resident's note and discussed the case with the resident. I agree with the resident's findings and plan as documented. SUBJECTIVE: Patient seen and examined Presents with iron deficiency with ferritin -3 anf Fe++ saturation ---3%. Menses q month occasional intermittent and somewhat heavy . Has fibroid uterus. Takes motrin or ibuprofen almost daily ---2 tabs/day No family history of anemia or cancer Never had mammography Last Vital Signs Temp Pulse Resp BP Pulse Ox 98 F 76 20 151/64 100 11/16/19 06:40 11/16/19 06:40 11/16/19 06:40 11/16/19 06:40 11/15/19 21:00 HEENT: MARGARITA, EOM Intact Oropharynx: No thrush, No mucositis Neck: Supple Nodes: Without adenopathy Breasts: Without masses Cor: RSR, No murmurs, No gallops Lungs: Clear to P&A Abd: Soft, Normal bowel sounds, No organomegaly Ext:No significant edema Skin: No rashes, Integument intact CBC, BMP 11/15/19 09:00 11/15/19 09:00 s/p transfusion therapy--[address] -prominent left ovary and ?ovarian involuted cyst and ? right hydro/pyosalpinx Impression: Iron deficiency - likely menorrhagia induced, but in view of NSAI use - consider GI Possible thalassemia - for HbE Abnormal CT Plan Fe++ therapy Consider GAME MODERATOR follow up Consider GI follow up. OBJECTIVE: ASSESSMENT AND PLAN:
--- NOTE | 2019-11-16 10:01 | PN ---
Progress Note, Physician - Current Medication List Current Medications: Active Medications Sodium Chloride (Normal Saline -) 1,000 mls @ 100 mls/hr IV ASDIR LUISANA Last Admin: 11/15/19 20:42 Dose: 100 mls/hr Iron Sucrose 200 mg/ Sodium (Chloride) 100 mls @ 100 mls/hr IVPB ONCE@1800 ONE Stop: 11/16/19 18:59 - Objective Vital Signs: Vital Signs Temperature 98 F 11/16/19 06:40 Pulse Rate 76 11/16/19 06:40 Respiratory Rate 20 11/16/19 06:40 Blood Pressure 151/64 11/16/19 06:40 O2 Sat by Pulse Oximetry (%) 100 11/15/19 21:00 Cardiovascular: Yes: Regular Rate and Rhythm Respiratory: Yes: Regular, CTA Bilaterally Gastrointestinal: Yes: Normal Bowel Sounds, Soft Labs: CBC, BMP 11/15/19 09:00 11/15/19 09:00 Problem List - Problems (1) Anemia Assessment/Plan: Hgb 7.7--s/p prbc--await repeat Patient is currently menstruating, likely cause due to fibroid hx on Ferrous sulfate Monitor CBC Monitor vitals hem consult appreciated GI consult DRAGLINE OPERATOR Code(s): D64.9 - ANEMIA, UNSPECIFIED (2) Left flank pain Assessment/Plan: resolved Code(s): R10.9 - UNSPECIFIED ABDOMINAL PAIN (3) Menorrhagia Assessment/Plan: hx Fibroids CTAP cyst? adnexal fulness DRAGLINE OPERATOR consult Code(s): N92.0 - EXCESSIVE AND FREQUENT MENSTRUATION WITH REGULAR CYCLE
[2019-11-16 10:17] LABS: BASO % 1.3 % (0-2.0); EOS % 5.4 % (0-4.5); HEMATOCRIT 30.2 % (32.4-45.2); HEMOGLOBIN 8.4 GM/dL (10.7-15.3); LYMPH % 56.7 % (8-40); MCHC 27.7 g/dl (32.0-36.0); MEAN CELL VOLUME 57.6 fl (80-96); MEAN PLT VOLUME 9.6 fl (7.5-11.1); MONO % 5.4 % (3.8-10.2); NEUT % 31.2 % (42.8-82.8); PLATELET COUNT 171 K/MM3 (134-434); RBC 5.25 M/mm3 (3.60-5.2); RDW 25.7 % (11.6-15.6); WHITE BLOOD COUNT 5.3 K/mm3 (4.0-10.0)
[2019-11-16 10:18] LABS: MCH 15.9 pg (25.7-33.7)
[2019-11-16 10:28] LABS: BILIRUBIN,TOTAL 0.2 mg/dL (0.2-1); BLOOD UREA NITROGEN 4.9 mg/dL (7-18); CALCIUM 8.2 mg/dL (8.5-10.1); CREATININE 0.5 mg/dL (0.55-1.3); POTASSIUM 3.8 mmol/L (3.5-5.1); TOT PROT 5.8 g/dl (6.4-8.2)
[2019-11-16 11:28] LABS: ANISOCYTOSIS 3+; MACROCYTOSIS 0; PLATELET ESTIMATE NORMAL; TEAR DROP CELLS 2+
[2019-11-16] MEDS: SODIUM CHLORIDE 1,000 ML IV SCH ×2 (12:15→18:47)
[2019-11-16] MEDS ORDERED: IRON SUCROSE INJECTION 200 MG in SODIUM CHLORIDE 90 ML IVPB ONE ×2 (18:00→18:27)
--- NOTE | 2019-11-16 20:59 | PN ---
Physical Exam: SUBJECTIVE: Patient seen and examined feeling anxious otehr kline no chest pain or sob OBJECTIVE: Vital Signs Period Temp Pulse Resp BP Sys/Burton Pulse Ox Last 24 Hr 97.8 F-98.2 F 76-85 18-20 118-151/63-68 100-100 GENERAL: Awake, alert, and fully oriented, in no acute distress. HEAD: Normal with no signs of trauma. EYES: Pupils equal, round and reactive to light, extraocular movements intact, left eye small ieies opal spot (arcus sinilis ) EARS, NOSE, THROAT: Moist mucous membranes. NECK: supple without lymphadenopathy, no myoph nodes was palpated in submandibular , axillary and inguinal area breast : no palpated mas or nodules LUNGS: Breath sounds equal, clear to auscultation bilaterally. No wheezes, HEART: Regular rate and rhythm, normal S1 and S2 without murmur, rub or gallop. ABDOMEN: Soft, periumbilical tenderness ,mild distended, normoactive bowel sounds LOWER EXTREMITIES: 2+ pulses, warm, well-perfused. No calf tenderness. No peripheral edema. NEUROLOGICAL: no focal deficit , Normal speech. PSYCHIATRIC: Cooperative. Good eye contact. SKIN: Warm, dry, normal turgor, Laboratory Results - last 24 hr 11/16/19 11/16/19 07:25 07:25 WBC 5.3 RBC 5.25 H Hgb 8.4 L Hct 30.2 L MCV 57.6 L MCH 15.9 L MCHC 27.7 L RDW 25.7 H Plt Count 171 MPV 9.6 Absolute Neuts (auto) 1.7 Neutrophils % 31.2 L Neutrophils % (Manual) 38.8 L Band Neutrophils % 0.0 Lymphocytes % 56.7 H Lymphocytes % (Manual) 34.0 Monocytes % 5.4 Monocytes % (Manual) 10 Eosinophils % 5.4 H Eosinophils % (Manual) 13.6 H D Basophils % 1.3 Basophils % (Manual) 0.0 Myelocytes % (Man) 0 Promyelocytes % (Man) 0 Blast Cells % (Manual) 0 Nucleated RBC % 1 H Metamyelocytes 0 Hypochromia 3+ Platelet Estimate Normal Platelet Comment Present Polychromasia 2+ Poikilocytosis 3+ Anisocytosis 3+ Microcytosis 3+ Macrocytosis 0 Tear Drop Cells 2+ Schistocytes 2+ Sodium 141 Potassium 3.8 Chloride 110 H Carbon Dioxide 24 Anion Gap 7 L BUN 4.9 L Creatinine 0.5 L Est GFR (CKD-EPI)AfAm 143.30 Est GFR (CKD-EPI)NonAf 123.64 Random Glucose 85 Calcium 8.2 L Total Bilirubin 0.2 AST 13 L ALT 14 Alkaline Phosphatase 65 Total Protein 5.8 L Albumin 3.0 L Active Medications Generic Name Dose Route Start Last Admin Trade Name Freq PRN Reason Stop Dose Admin Sodium Chloride 1,000 mls @ 100 mls/hr 11/15/19 12:15 11/16/19 18:47 Normal Saline - IV 100 mls/hr ASDIR LUISANA Administration CBC, BMP 11/16/19 07:25 11/16/19 07:25 ASSESSMENT/PLAN: 39 year old female with history of fibroid presented with abdominal pain and was found to have HGb 6.3 , we were consulted rodriguez anemia #sever Microcytic hypochromic anemia ,likely due to mennorrhagia 2/2 fibroid can not R.O Thalasemia as low MVC 50 and normal RBC 4.5 will send Hemoglobin eleectriopheresis has transfusion in the past * HGb 6.3 transfuse one unit ... 7.7 * MCV 52, mchc 24 m RDW 21 * iron studies and ferritin very low 3 will start fenofer infusion 200 mg daily for 3 days * occult blood stool as pt taking a lot of Motrin to R.O gastric ulcer * avoid NSAIDS * normal transfusion threshold * CT A/P with hydrosalpinx * firer watertender consult # SIDDHARTHA likely due to hypoperfusion vs post renal obstruction * US * IV hydration * renal consult Visit type - Emergency Visit Emergency Visit: Yes ED Registration Date: 11/15/19 Care time: The patient presented to the Emergency Department on the above date and was hospitalized for further evaluation of their emergent condition. - New Patient This patient is new to me today: No - Critical Care Critical Care patient: No - Discharge Referral Referred to [facility] No ATTENDING PHYSICIAN STATEMENT I saw and evaluated the patient. I reviewed the resident's note and discussed the case with the resident. I agree with the resident's findings and plan as documented. SUBJECTIVE: OBJECTIVE: ASSESSMENT AND PLAN:
--- NOTE | 2019-11-16 22:05 | PN ---
Teaching Attending Note Name of Resident: Ramy Sin ATTENDING PHYSICIAN STATEMENT I saw and evaluated the patient. I reviewed the resident's note and discussed the case with the resident. I agree with the resident's findings and plan as documented. SUBJECTIVE: Doing well. No complaints OBJECTIVE: Last Vital Signs Temp Pulse Resp BP Pulse Ox 98.2 F 85 20 131/64 100 11/16/19 17:23 11/16/19 17:23 11/16/19 17:23 11/16/19 17:23 11/16/19 09:00 HEENT: MARGARITA, EOM Intact Oropharynx: No thrush, No mucositis Neck: Supple Nodes: Without adenopathy Breasts: Without masses Cor: RSR, No murmurs, No gallops Lungs: Clear to P&A Abd: Soft, Normal bowel sounds, No organomegaly Ext:No significant edema Skin: No rashes, Integument intact 11/16/19 07:25 11/16/19 07:25 Current Medications Sodium Chloride (Normal Saline -) 1,000 mls @ 100 mls/hr IV ASDIR [facility] Last Admin: 11/16/19 18:47 Dose: 100 mls/hr ASSESSMENT AND PLAN: 39 y/o lady with history of fibroid presented with abdominal pain and Hb 6.3. Hematology consulted for anemia Recommend: 1) Hb Electrophoresis (R/o Thalassemia). IV Iron Sucrose therapy 2) Gynecology outpatient follow-up for fibroid surgery evaluation 3) GI evaluation and follow-up 4) Hematology outpatient follow-up
--- NOTE | 2019-11-17 00:30 | CONS ---
DATE OF CONSULTATION: 11/16/2019 REASON FOR CONSULTATION: Anemia. Heavy menses. HISTORY OF PRESENT ILLNESS: This patient is a 39-year-old female, 3, para 3, with 2 normal delivery and 1 with known history of fibroid uterus and history of anemia, was admitted to the emergency room with a flank pain and abdominal cramping and said that her period was heavy and complained of period lasting 7 days with 3 days of heavy bleeding with clots and 4 days of light and spotting. PAST SURGICAL HISTORY: Significant for a and anemia and fibroid uterus. She has been followed for her PERINATAL BREASTFEEDING ASSISTANT care at . She had no fever, no dysuria. Temperature was 98.6 on admission, blood pressure 114/57 and pulse was 90. Her hemoglobin was 6.3, hematocrit 25.6, and white count was 5.7. PHYSICAL EXAMINATION: General: On examination, patient was alert and oriented, asymptomatic. Had received 2 units of red blood cell, and her hemoglobin was 8.4, and hematocrit of 30.2, white count was 5.3 after the transfusion. Abdomen: Soft, nontender. No masses, no CVA tenderness. Pelvic: External genitalia to be normal, vagina was normal with small dark old blood in the vault. Cervix was clean, no active bleeding. Uterus was enlarged, approximately 12 to 14 weeks' size, irregular, with fibroid adnexa. No masses were palpable. IMPRESSION: Fibroid uterus, anemia, actively not bleeding. Transvaginal sonogram showed the uterus to be 14 weeks' size fibroid with multiple fibroids. Impression is menorrhagia, fibroid uterus. No active bleeding at this time. Advised can be discharged home on iron and vitamin and follow up in the for further management of her fibroids. Instructions given to the patient. Patient understood all the instructions and will follow up after discharge. MERON MO M.D. [id number]
[2019-11-17] MEDS: ACETAMINOPHEN 325 MG TABLET (FP) PO PRN ×2 (02:37→11:24)
--- NOTE | 2019-11-17 07:34 | DS ---
Physical Examination Vital Signs: Vital Signs Temperature 98.0 F 11/17/19 02:02 Pulse Rate 79 11/17/19 02:02 Respiratory Rate 20 11/17/19 02:02 Blood Pressure 124/60 11/17/19 02:02 O2 Sat by Pulse Oximetry (%) 100 11/16/19 21:00 Cardiovascular: Yes: Regular Rate and Rhythm Respiratory: Yes: Regular, CTA Bilaterally Gastrointestinal: Yes: Normal Bowel Sounds, Soft. No: Tenderness Labs: CBC, BMP 11/16/19 07:25 11/16/19 07:25 Discharge Summary Problems reviewed: Yes Reason For Visit: ANEMIA, LEFT FLANK PAIN Current Active Problems Anemia (Acute) Left flank pain (Acute) Hospital Course: - Problems (1) Anemia Assessment/Plan: Hgb 7.7--s/p prbc--await repeat Patient is currently menstruating, likely cause due to fibroid hx on Ferrous sulfate Monitor CBC Monitor vitals hem consult appreciated GI consult as outpatient GOVERNMENT TEACHER noted--will need follow up Code(s): D64.9 - ANEMIA, UNSPECIFIED (2) Left flank pain Assessment/Plan: resolved Code(s): R10.9 - UNSPECIFIED ABDOMINAL PAIN (3) Menorrhagia Assessment/Plan: hx Fibroids CTAP cyst? adnexal fulness--see gyn physician note GOVERNMENT TEACHER consult Code(s): N92.0 - EXCESSIVE AND FREQUENT MENSTRUATION WITH REGULAR CYCLE Condition: Fair - Instructions Diet, Activity, Other Instructions: need blood test next week Referrals: George English MD [Primary Care Provider] - 1 Week Ramez Talamantes MD [Staff Physician] - Jaylon Torres DO [Staff Physician] - - Home Medications Comprehensive Discharge Medication List: Ambulatory Orders Iron,Carb/Vit C/Vit B12/Folic [Fe C Plus Tablet] 1 each PO BID #60 tablet
[2019-11-17 07:49] LABS: HEMATOCRIT 31.3 % (32.4-45.2); HEMOGLOBIN 8.6 GM/dL (10.7-15.3); MCHC 27.3 g/dl (32.0-36.0); MEAN CELL VOLUME 57.7 fl (80-96); MEAN PLT VOLUME 9.6 fl (7.5-11.1); PLATELET COUNT 172 K/MM3 (134-434); RBC 5.42 M/mm3 (3.60-5.2); RDW 26.3 % (11.6-15.6); WHITE BLOOD COUNT 6.1 K/mm3 (4.0-10.0)
[2019-11-17 08:17] LABS: ALBUMIN 3.1 g/dl (3.4-5.0); BILIRUBIN,TOTAL 0.2 mg/dL (0.2-1); BLOOD UREA NITROGEN 7.5 mg/dL (7-18); CALCIUM 8.2 mg/dL (8.5-10.1); CREATININE 0.5 mg/dL (0.55-1.3); POTASSIUM 4.2 mmol/L (3.5-5.1)
[2019-11-17 08:39] LABS: MCH 15.8 pg (25.7-33.7)
[2019-11-17 10:55] VITALS: BP 110/55; PULSE 78; TEMP 98
--- NOTE | 2019-11-17 11:58 | CON.GI ---
Consult Consult Specialty:: GI Referred by:: Dr. Molina Reason for Consultation:: Anemia - History of Present Illness Chief Complaint: heavy menstrual bleeding. 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 History of Present Illness: 39F admitted for evaluation of cramping pelvic pain and heavy menses. Noted to have a fibroid and being evaluated by COVER CREASER. Noted to be anemia. Denies nausea, vomiting, diarrhea, abdominal pain, unintentional weight loss, rectal bleeding, melena, chane in bowel habits. She has never had an EGD or colonoscopy. There is no family history of colorectal cancer or other GI malignancy. There is no family history of celiac disease - History Source History Provided By: Patient, Medical Record - Past Medical History Reproductive: Yes: Other (Uterine fibroid with menorrhagia) ...LMP: 11/13/19 ...: No - Past Surgical History Additional Surgical History: x 2 - Alcohol/Substance Use Hx Alcohol Use: No - Smoking History Smoking history: Current every day smoker Have you smoked in the past 12 months: Yes Aproximately how many cigarettes per day: 2 - Social History Usual Living Arrangement: With Child () ADL: Independent Occupation: [employer] Place of : [place] ([place] Came to [place] (year): 2012 History of Recent Travel: No Home Medications - Allergies Allergies/Adverse Reactions: Allergies Allergy/AdvReac Type Severity Reaction Status Date / Time No Known Allergies Allergy Verified 11/14/19 16:02 - Home Medications Home Medications: Ambulatory Orders Iron,Carb/Vit C/Vit B12/Folic [Fe C Plus Tablet] 1 each PO BID #60 tablet Family Medical History Other Family History: Father: alive: healthy. Mother: alive: healthy. 4 brothers, 3 sisters: healthy. 3 healthy children. No family history of colorectal cancer or other GI malignancy Review of Systems - Review of Systems Constitutional: reports: Weakness. denies: Fever, Unintentional Wgt. Loss Cardiovascular: denies: Chest Pain Gastrointestinal: denies: Abdominal Pain, Dysphagia, Melena, Nausea, Rectal Bleeding, Vomiting, Vomiting Blood Physical Exam-GI Vital Signs: Vital Signs Temperature 98 F 11/17/19 08:00 Pulse Rate 78 11/17/19 08:00 Respiratory Rate 20 11/17/19 09:00 Blood Pressure 110/55 L 11/17/19 08:00 O2 Sat by Pulse Oximetry (%) 100 11/17/19 09:00 Constitutional: Yes: Calm Eyes: No: Sclera Icterus Cardiovascular: Yes: Regular Rate and Rhythm Respiratory: Yes: CTA Bilaterally Gastrointestinal Inspection: Yes: Scars (pelvic). No: Distention ...Auscultate: Yes: Normoactive Bowel Sounds ...Palpate: Yes: Soft. No: Hepatomegaly, Splenomegaly, Tenderness ...Rectal Exam: Yes: Other (Medical Social Consultant present: no external lesions, no masses, formed light brown stool in rectal vault, gauaic negative.) Edema: No (No LE edema) Neurological: Yes: Alert Labs: CBC, BMP 11/17/19 07:05 11/17/19 07:05 Problem List - Problems (1) Anemia Assessment/Plan: Suspect secondary to rate reviewer losses. No focal GI complaints and guaiac negative on exam. Being evaluated by COVER CREASER. Outpatient follow-up to discuss secondary GI evaluation Code(s): D64.9 - ANEMIA, UNSPECIFIED
[2019-11-17 12:09] LABS: ANISOCYTOSIS 3+; MACROCYTOSIS 0; PLATELET ESTIMATE NORMAL
--- NOTE | 2019-11-17 14:08 | PN ---
Progress Note (short form) - Note Progress Note: patient seen and examined HX of fibroid uterus , heavy menses , not actively bleeding now, got 2 units of PRBC BCP discussed , risks and benefit explained will follow up in [facility] care at [facility] in 1 week for revaluation and management of fibroid
[2019-11-21 14:07] LABS: HGB SOLUBILITY Negative (Negative); Hgb C 0 % (0.0); Hgb F 0 % (0.0-2.0); Hgb S 0 % (0.0)
== END 2019-11-17 14:38 | disposition home or self-care (01) | DRG 663 ==
LOC: JER 15:51 → JERBED 11-15 01:44 → J8W 11-15 06:53
PROVIDERS: ADMIT Internal Medicine; ATTEND Family Medicine
PROC: 30233N1 Transfusion of Nonautologous Red Blood Cells into Peripheral Vein, Percutaneous Approach (ICD-10-PCS; principal; 2019-11-15)
DX: D50.9 Iron deficiency anemia, unspecified (principal); D25.9 Leiomyoma of uterus, unspecified; N92.0 Excessive and frequent menstruation with regular cycle; N70.11 Chronic salpingitis; D56.9 Thalassemia, unspecified; N17.9 Acute kidney failure, unspecified
CPT/HCPCS: 36415; 36430; 36511; 71046-TC-FY; 74177-TC; 76856-TC; 80048; 80053; 81003; 82728; 83021; 83540; 83550; 84703; 85025; 85660; 86850; 86900; 86901; 86922; 87086; 93005; 93010; 99284-25; J1756; J7030; P9038; P9058; Q9967

== ENCOUNTER 2019-12-09 15:36 | Emergency (ER) | payer OTHER ==
[2019-12-09 16:12] VITALS: TEMP 98.1; BMI 26.9
[2019-12-09] MEDS ORDERED: SODIUM CHLORIDE 0.9% 500 ML INFUS.BAG IV ONE (17:12)
--- NOTE | 2019-12-09 17:58 | PDOC ---
History of Present Illness - General Chief Complaint: Vaginal Bleeding Stated Complaint: ABDOMINAL PAIN Time Seen by Provider: 12/09/19 17:11 - History of Present Illness Initial Comments: 12/09/19 17:43 39y/o F , hx of fibroids with menorrhagia , anemia, tubal ligation presents today with 2 days of lower abdominal cramping pain and 1 day of heavy bleeding. She reports that this is the first day of her period , but the bleeding is heavier than usual. She reports having changed more than 5 completely soaked pads today. She was recenlty admitted here on 11/14/2019 for the same complaint during her period. She was found to be anemic with Hgb of 6.3 and received 2 PRBC's.She was equally evaluated by manager gyn (DR. Conti) and instructed to follow up, but she missed her appointment. She took 2 extra strength tylenols at home but felt no relief.She denies any nausea, vomiting, shortness of breath, chest pain, fevers, chills, burning with urination. Past History - Past Medical History Allergies/Adverse Reactions: Allergies Allergy/AdvReac Type Severity Reaction Status Date / Time No Known Allergies Allergy Verified 12/09/19 19:17 Home Medications: Ambulatory Orders Iron,Carb/Vit C/Vit B12/Folic [Fe C Plus Tablet] 1 each PO BID #60 tablet Anemia: Yes Cancer: No Cardiac Disorders: No CVA: No COPD: No CHF: No DVT: No Dementia: No Other medical history: Fiobroids - Immunization History Immunization Up to Date: Yes - Psycho Social/Smoking Cessation Hx Smoking History: Never smoked Have you smoked in the past 12 months: No Number of Cigarettes Smoked Daily: 1 'Breaking Loose' booklet given: 11/15/19 Hx Alcohol Use: No Drug/Substance Use Hx: No Substance Use Type: None Hx Substance Use Treatment: No Review of Systems - Review of Systems Constitutional: No: Chills, Fever HEENTM: No: Eye Pain, Blurred Vision Respiratory: No: Cough, Shortness of Breath Cardiac (ROS): No: Chest Pain, Chest Tightness ABD/GI: No: Nausea, Vomiting : No: Burning Integumentary: No: Bruising, Change in Color, Flushing Neurological: No: Headache, Numbness *Physical Exam - Vital Signs Last Vital Signs Temp Pulse Resp BP Pulse Ox 98.1 F 115 H 19 116/77 99 12/09/19 16:09 12/09/19 16:09 12/09/19 16:09 12/09/19 16:09 12/09/19 16:09 - Physical Exam 12/09/19 17:59 GENERAL: Awake, alert, and fully oriented, uncomfortable HEAD: No signs of trauma, normocephalic, atraumatic EYES: PERRL, EOMI, sclera anicteric, conjunctiva clear ENT: Auricles normal inspection, hearing grossly normal, nares patent, oropharynx clear without exudates. Moist mucosa NECK: Normal ROM, supple, no lymphadenopathy, JVD, or masses LUNGS: No distress, speaks full sentences, clear to auscultation bilaterally HEART: Regular rate and rhythm, normal S1 and S2, no murmurs, rubs or gallops, peripheral pulses normal and equal bilaterally. ABDOMEN: Soft,tenderness across the lower quadrant. No guarding, no rebound. No masses. left CVA tenderness GENITOURINARY: Nml appearing external genitalia, with absent lesions. blood in the vaginal vault with large clots. no lacerations observed in vaginal vault, unable to visualize os due to blood. EXTREMITIES : Normal inspection, Normal range of motion, no edema. No clubbing or cyanosis NEUROLOGICAL: Cranial nerves II through XII grossly intact. Normal speech, normal gait, no focal sensorimotor deficits SKIN: Warm, Dry, normal turgor, no rashes or lesions noted ED Treatment Course - LABORATORY CBC & Chemistry Diagram: 12/09/19 17:40 12/09/19 17:40 Medical Decision Making - Medical Decision Making 12/09/19 18:03 39y/o F , hx of fibroids with menorrhagia , anemia, tubal ligation presents today with 2 days of lower abdominal cramping pain and 1 day of heavy bleeding DDX: menorrhagia from fibroids with associated anemia, adenomyosis, endometriosis others on differential though less likely, cirrhosis, coagulopathy. Workup cbc, cmp, ua, urine culture, pt/inr, ptt. serum test. Meds: normal saline (1L) for tachycardia if test negative, pt can receive toradol . 12/09/19 18:15 Hgb and Hct 10.6 and 12/09/19 19:36 Dr. Grijalva's service contacted and return call number left. Pt feeling better after toradol. per Dr. Summers, pt can be sent home with follow up on Wednesday. 12/09/19 20:01 Discharge - Discharge Information Problems reviewed: Yes Clinical Impression/Diagnosis: Menorrhagia Qualifiers: Menorrhagia type: with regular cycle Qualified Code(s): N92.0 - Excessive and frequent menstruation with regular cycle Condition: Stable Disposition: HOME - Follow up/Referral Referrals: George English MD [Primary Care Provider] - Radha Irving MD [Staff Physician] - Josephine Castellanos MD [Non Staff, Medical] - Ramez Talamantes MD [Staff Physician] - - Patient Discharge Instructions Patient Printed Discharge Instructions: DI for Uterine Fibroids Additional Instructions: You were seen in the ER for vaginal bleeding. You have been given referral to metal baler Your care is not complete until you follow up with the metal baler on Wednesday or at the latest next week RETURN TO THE ER: if your pain is not resolved with ibuprofen if you develop fevers, chills, nausea or vomiting that does not allow you to keep down food. - Post Discharge Activity
[2019-12-09 18:10] LABS: CORRECTED WBC 9.06 K/mm3; EOS % 11.2 % (0-4.5); HEMATOCRIT 37.5 % (32.4-45.2); HEMOGLOBIN 10.6 GM/dL (10.7-15.3); LYMPH % 17.9 % (8-40); MCHC 28.3 g/dl (32.0-36.0); MEAN CELL VOLUME 62.2 fl (80-96); MONO % 7.5 % (3.8-10.2); NEUT % 62.4 % (42.8-82.8); RBC 6.02 M/mm3 (3.60-5.2); RDW 34.4 % (11.6-15.6); WHITE BLOOD COUNT 10.6 K/mm3 (4.0-10.0)
[2019-12-09 18:12] LABS: MCH 17.6 pg (25.7-33.7)
--- NOTE | 2019-12-09 18:22 | PDOC ---
Documentation entered by Ashley Cohen SCRIBE, acting as scribe for Nanci Mae MD. Nanci Mae MD: This documentation has been prepared by the Vicki alcaraz Adrianna, SCRIBE, under my direction and personally reviewed by me in its entirety. I confirm that the documentation accurately reflects all work, treatment, procedures, and medical decision making performed by me. Attending Attestation - Resident Resident Name: Abdoulaye Johansen - ED Attending Attestation I have performed the following: I have examined & evaluated the patient, The case was reviewed & discussed with the resident, I agree w/resident's findings & plan, Exceptions are as noted - HPI HPI: The patient is a 39 year old female, with a significant PMH of fibroids with menorrhagia, anemia, tubal ligation, and right ovarian cyst, who presents to the ED for evaluation of vaginal bleeding for 1 day. Patient complains of vaginal bleeding, soaking through 5 pads, with diffuse lower abdominal cramping. She notes she is currently menstruating, but is bleeding far more than she typically does. Denies relief with Tylenol. She was recently seen at [facility] for the same complaint, was found to be anemic and was admitted for a transfusion. Patient has not followed up with OBGYN at his time. Allergies: NKA, NKDA Surgical History: None reported Social History: Denies EtOH, tobacco, or illicit drug use PCP: Dr. George English - Physicial Exam PE: GENERAL: Awake, alert, and fully oriented, in no acute distress. +Pallor. HEAD: No signs of trauma EYES: PERRLA, EOMI, sclera anicteric, conjunctiva clear ENT: Auricles normal inspection, hearing grossly normal, nares patent, oropharynx clear without exudates. Moist mucosa NECK: Normal ROM, supple, no lymphadenopathy, JVD, or masses LUNGS: Breath sounds equal, clear to auscultation bilaterally. No wheezes, and no crackles HEART: Regular rate and rhythm, normal S1 and S2, no murmurs, rubs or gallops ABDOMEN: Soft, +mild suprapubic tenderness, normoactive bowel sounds. No guarding, no rebound. No masses EXTREMITIES: Normal range of motion, no edema. No clubbing or cyanosis. No cords, erythema, or tenderness NEUROLOGICAL: Cranial nerves II through XII grossly intact. Normal speech, normal gait. Motor and sensation intact SKIN: Warm, dry, normal turgor, no rashes or lesions noted. - Medical Decision Making Pt with history of fibroids, prior heavy menses presenting with heavy menses since last night. Similar to prior episodes. She has required transfusions in the past. Will check CBC, serum preg. If negative, will give toradol and contact rn gyn.
[2019-12-09 18:43] LABS: INR 1.14 (0.83-1.09); PROTHROMBIN TIME (PATIENT) 13.5 SEC (9.7-13.0)
[2019-12-09 18:44] LABS: ALBUMIN 3.9 g/dl (3.4-5.0); BILIRUBIN,TOTAL 0.2 mg/dL (0.2-1); BLOOD UREA NITROGEN 5.9 mg/dL (7-18); CALCIUM 9.1 mg/dL (8.5-10.1); CREATININE 0.7 mg/dL (0.55-1.3); POTASSIUM 3.7 mmol/L (3.5-5.1); TOT PROT 7.4 g/dl (6.4-8.2)
[2019-12-09 18:46] LABS: ACTIVATED PTT 31.5 SECONDS (25.2-36.5)
[2019-12-09] MEDS ORDERED: KETOROLAC TROMETHAMINE 30 MG/1 ML VIAL IVPUSH ONE (19:01)
[2019-12-09] MEDS ORDERED: KETOROLAC TROMETHAMINE 30 MG/1 ML VIAL ONE (19:07)
[2019-12-09 19:32] LABS: EPI CELLS 1.5 /HPF (0-5/HPF); HYALINE CASTS 4 /lpf (0-8); URINE APPEARANCE CLEAR; URINE BACTERIA 5.5 /hpf (NEGATIVE); URINE BILIRUBIN NEGATIVE (NEGATIVE); URINE COLOR YELLOW; URINE GLUCOSE (UA) NEGATIVE (NEGATIVE); URINE KETONE TRACE (NEGATIVE); URINE LEUK ESTERASE NEGATIVE (NEGATIVE); URINE NITRITE NEGATIVE (NEGATIVE); URINE PROTEIN NEGATIVE (NEGATIVE); URINE RBC 187 /hpf (0-4); URINE UROBILINOGEN 0.2 mg/dL (0.2-1.0); URINE WBC 2 /hpf (0-5)
[2019-12-09 19:45] LABS: ANISOCYTOSIS 2+
[2019-12-09 19:46] LABS: MEAN PLT VOLUME 10.4 fl (7.5-11.1); PLATELET COUNT 228 K/MM3 (134-434)
[2019-12-09 19:47] LABS: PLATELET ESTIMATE ADEQUATE; TEAR DROP CELLS 1+
[2019-12-09 19:48] LABS: OVALOCYTE 1+
[2019-12-09 20:05] VITALS: BP 121/78; PULSE 98
== END 2019-12-09 20:06 | disposition home or self-care (01) ==
LOC: JER 15:36
PROC: 3E0333Z Introduction of Anti-inflammatory into Peripheral Vein, Percutaneous Approach (ICD-10-PCS; principal; 2019-12-09)
DX: N92.0 Excessive and frequent menstruation with regular cycle (principal); Z86.2 Personal history of diseases of the blood and blood-forming organs and certain disorders involving the immune mechanism; Z98.51 Tubal ligation status
CPT/HCPCS: 36415; 80053; 81003; 84703; 85025; 85610; 85730; 87086; 96374; 99284-25